=== PATIENT | female | born 1940 | race Hispanic/Latino ===

== ENCOUNTER 2024-08-17 20:11 | Observation (INO) | payer OTHER, SELFPAY ==
--- NOTE | ~2024-08-17 | CT_ITS ---
EXAMINATION: CTA brain carotid DATE: 08/17/2024 20:38 INDICATION: Right facial weakness. TECHNIQUE: Computed tomographic angiography (CTA) of the head was performed with 100 mL Omnipaque-350 intravenous contrast. CTA of the neck was performed with intravenous contrast. Automated exposure co ntrol and iterative reconstruction technique were employed. The dose-length product was 1139.69 mGy-c m. Maximum intensity projection and volume rendered 3D-reconstructions were created by the [employer] st on a separate workstation. COMPARISON: Head CT 08/17/2024 FINDINGS: HEAD CTA: There is an old infarct involving the right basal ganglia and right internal capsule. There are scattered areas of low attenuation in the cerebral white matter, which is within normal limits f or the patient's age. There is no intracranial hemorrhage, acute infarction, or abnormal intracranial mass lesion. There is ex vacuo dilatation of right lateral ventricle. There is mucosal thickening in the paranasal sinuses. The orbits are normal. The mastoid air cells are normal. Right vertebral vitor ry is dominant. There is total occlusion of distal left vertebral artery. There is no significant cali nosis of basilar artery or the posterior communicating arteries. There is no significant stenosis of the intracranial internal carotid arteries or anterior or middle cerebral arteries. Anterior communic ating artery is normal. Posterior communicating arteries are not identified. There is no aneurysm. NECK CTA: The lungs demonstrate peripheral septal thickening, consistent with mild pulmonary edema an d/or chronic interstitial lung disease. Cardiomegaly is noted. No pericardial effusion. There are cor onary artery calcifications. The central pulmonary arteries are enlarged, consistent with pulmonary arterial hypertension. The ascending aorta measuring 4.4 cm. There are no pathologically enlarged lym ph nodes. There are nodules in the thyroid measuring up to 2.4 cm. There is no significant stenosis o f the cervical vertebral arteries. There is plaque in the proximal internal carotid arteries. There is 0% stenosis of the proximal right internal carotid artery relative to normal distal artery lumen d iameter (NASCET criteria). There is 0% stenosis of the proximal left internal carotid artery relative to normal distal artery lumen diameter. There is severe spondylosis at C5-C6. IMPRESSION: 1. 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 2. 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 3. 0% stenosis of the proximal internal carotid arteries relative to normal distal artery lumen diame ters (NASCET criteria). Reviewed, dictated and finalized at location A. [employer] IMPRESSION: 1. 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 2. 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 3. 0% stenosis of the proximal internal carotid arteries relative to normal dis gael artery lumen diameters (NASCET criteria).
--- NOTE | ~2024-08-17 | XR_ITS ---
XR chest 2V DATE: 08/19/2024 16:51 INDICATION: Aortic dilatation TECHNIQUE: PA and lateral views COMPARISON: None FINDINGS: Cardiomegaly. Aortic calcification and unfolding. No hilar or mediastinal enlargement is de tected. No pulmonary infiltrate or consolidation, pleural effusion or pulmonary vascular congestion or pneumo thorax. Bilateral thyroid calcifications. Diffuse osteopenia. Degenerative spurring involving particularly the lower thoracic spine. IMPRESSION: Cardiomegaly Aortic atherosclerosis No active pulmonary disease Osteopenia Degenerative spurring of the thoracic spine Bilateral thyroid calcifications Reviewed, dictated and finalized at location A. GER RETENTION
--- NOTE | ~2024-08-17 | MR_ITS ---
EXAMINATION: MR brain/brain stem wo/w con DATE: 08/18/2024 11:34 INDICATION: Right facial droop TECHNIQUE: Magnetic resonance imaging (MRI) of the brain and brainstem was performed without and with 16 mL Multihance intravenous contrast. Sequences included sagittal and axial T1-weighted SE, axial d iffusion-weighted FS SE, axial T2*-weighted GRE, axial T2-weighted FLAIR, and axial T2-weighted FSE. Postcontrast axial and coronal T1-weighted SE was obtained. Apparent diffusion coefficient (ADC) maps were created. COMPARISON: Head CT and brain and carotid CT angiogram dated 08/17/2024 FINDINGS: Again seen is a small region of subtle malacia consistent with chronic infarct involving the head of the right caudate nucleus and adjacent anterior limb of the internal capsule. There are no areas of r estricted diffusion to suggest acute infarction. No intracranial hemorrhage or abnormal intracranial mass lesion. There are scattered areas of nonspecific increased T2-weighted signal intensity in the c erebral white matter, predominantly involving the deep and periventricular white matter. There are no intraparenchymal signal abnormalities seen on the other pulse sequences. Symmetric prominence of the sulci consistent with mild age-appropriate diffuse cerebral volume loss. The ventricles are symmetri c and normal in size. There are no abnormal extra-axial fluid collections. Absent flow void in the le ft vertebral artery consistent with total occlusion as demonstrate on the earlier brain and carotid C T angiogram. Flow voids are seen in the remaining central cerebral arteries on the T2-weighted sequen xochitl consistent with their expected patency. There are no abnormally enhancing brain lesions. Enhancin g mucosal thickening throughout the paranasal sinuses with nonenhancing mucus filling the left maxill maged and partially filling the right maxillary sinuses. Visualized orbits and soft tissues are unremar kable. IMPRESSION: 1. 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 No acute intracranial process. 2. Age-related changes in the brain with mild diffuse volume loss and age-appropriate mild scattered white matter T2 hyperintensity consistent with chronic small vessel ischemic disease. 3. 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 Reviewed, dictated and finalized at location A. RVISOR HOME ENERGY CONSULTANT IMPRESSION: 1. 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 No acute intracranial process. 2. Age-related changes in the brain with mild diffuse volume loss and age-appro priate mild scattered white matter T2 hyperintensity consistent with chronic sm all vessel ischemic disease. 3. 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
--- NOTE | ~2024-08-17 | MR_ITS ---
EXAMINATION: MRA brain wo con DATE: 08/18/2024 11:45 INDICATION: Stroke TECHNIQUE: Magnetic resonance angiography (MRA) of the brain was performed without intravenous contrast by the 3 D [id number] technique. COMPARISON: Brain and carotid CT angiogram dated 08/17/2024 FINDINGS: There is normal flow related signal seen within the basilar, right vertebral and bilateral internal c arotid arteries. No flow related signal in the left vertebral artery consistent with total occlusion as seen on the CT angiogram from one day prior. There is no proximal stenosis. There are no aneurysm s identified. Both A1 and P1 segments are patent. Flow in the cerebral arteries is symmetric. IMPRESSION: 1. 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 Reviewed, dictated and finalized at location A. ER AND TONER
--- NOTE | ~2024-08-17 | CT_ITS ---
EXAMINATION: CT brain wo con DATE: 08/17/2024 20:34 INDICATION: Right facial weakness. TECHNIQUE: Computed tomography (CT) of the head was performed without intravenous contrast. The mA wa s adjusted according to patient size. Iterative reconstruction technique was employed. The dose-lengt h product was 605.33 mGy-cm. COMPARISON: None FINDINGS: There is an old infarct involving the right basal ganglia and right internal capsule. There are scattered areas of low attenuation in the cerebral white matter, which is within normal limits f or the patient's age. There is no intracranial hemorrhage, acute infarction, or abnormal intracrania l mass lesion. There is ex vacuo dilatation of right lateral ventricle. The orbits are normal. The ma stoid air cells are normal. There is mucosal thickening in the paranasal sinuses. IMPRESSION: 1. 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 I called this result to Dr. Bolanos. Reviewed, dictated and finalized at location A. VALUE TESTER
--- NOTE | ~2024-08-17 | CT_ITS ---
EXAMINATION: CTA chest DATE: 08/19/2024 16:52 INDICATION: Aortic dilatation TECHNIQUE: Computed tomography (CT) of the chest was performed with 100 CC Omnipaque 350 intravenous contrast. Automated exposure control and iterative reconstruction technique were employed. Exam dose: 321.86 mGy-cm total exam DLP. COMPARISON: 08/19/2024 2 view chest FINDINGS: There is thyromegaly with bilateral thyroid cysts and prominent macrocalcifications. There is aneurysm of the ascending aorta which measures up to 4.6 cm diameter. Normal caliber of the mid aortic arch, measuring 2.7 cm diameter. Normal caliber of the descending aorta, measuring 2.6 cm diameter. No hilar or mediastinal mass lesion or lymphadenopathy. No thoracic aortic dissection. No pericardial or pleural effusion. There is interstitial soft tissue thickening in the peripheral lung lucero which may be consistent wi th usual interstitial pneumonia type pulmonary interstitial fibrosis. No pulmonary consolidation or suspicious pulmonary mass lesion is detected. Sludge and/or stones in the gallbladder lumen. The partially included adrenal glands appear unremarkable. Small sliding hiatal hernia. Diffuse idiopathic skeletal hyperostosis of the lower thoracic spine. No suspicious osteolytic or osteoblastic lesions. IMPRESSION: 4.6 cm diameter ascending aortic aneurysm Thyromegaly with bilateral macrocalcifications, cysts Peripheral interstitial thickening of the lungs which might be consistent with usual interstitial pne umonia type pulmonary interstitial fibrosis Sludge and/or stones in the gallbladder lumen Small sliding hiatal hernia Diffuse idiopathic skeletal hyperostosis of the lower thoracic spine Reviewed, dictated and finalized at Location A. Reviewed, dictated and finalized at location A. TRIC REPAIR SUPERVISOR IMPRESSION: 4.6 cm diameter ascending aortic aneurysm Thyromegaly with bilateral macrocalcifications, cysts Peripheral interstitial thickening of the lungs which might be consistent with usual interstitial pneumonia type pulmonary interstitial fibrosis Sludge and/or stones in the gallbladder lumen Small sliding hiatal hernia Diffuse idiopathic skeletal hyperostosis of the lower thoracic spine
--- NOTE | ~2024-08-17 | US_ITS ---
EXAMINATION: US venous doppler [facility] DATE: 08/17/2024 22:09 INDICATION: Deep vein thrombosis. TECHNIQUE: Grayscale ultrasound images without and with compression and Doppler ultrasound images of the bilateral lower extremity veins were obtained. COMPARISON: None. FINDINGS: The visualized portions of right common femoral vein, profunda (deep) femoral vein, femoral vein, pop liteal vein, peroneal veins, posterior tibial veins, and greater saphenous vein outflow are patent. The visualized portions of left common femoral vein, profunda femoral vein, femoral vein, popliteal v ein, peroneal veins, posterior tibial veins, and greater saphenous vein outflow are patent. IMPRESSION: 1. No deep venous thrombosis. Reviewed, dictated and finalized at location A. T MANAGER
--- NOTE | ~2024-08-17 | MR_ITS ---
EXAMINATION: MRA neck wo/w con DATE: 08/18/2024 12:43 INDICATION: Stroke TECHNIQUE: Magnetic resonance angiography (MRA) of the neck was performed without intravenous contras t. Sequences included axial 2D-time of flight T1-weighted FSPGR and coronal T1-weighted FSPGR without and with 20 mL Multihance intravenous contrast. COMPARISON: None. FINDINGS: 4.7 cm diameter fusiform ascending thoracic aortic aneurysm. The right vertebral artery is dominant w ith diminutive left vertebral artery, the distal intracranial portion of which appears to occlude. Th ere is 0% stenosis of the right carotid bulb relative to normal distal artery lumen diameter (NASCET criteria). There is 0% stenosis of the left carotid bulb relative to normal distal artery lumen diam eter. Multinodular goiter. IMPRESSION: 1. 0% stenosis of the right carotid bulb relative to normal distal artery lumen diameter (NASCET crit eria). 2. 0% stenosis of the left carotid bulb relative to normal distal artery lumen diameter. 3. Right vertebral artery is dominant with diminutive left vertebral artery the distal intracranial p ortion of which occludes. 4. Fusiform ascending thoracic aortic aneurysm measuring up to 4.7 cm in maximal diameter. 5. Multinodular goiter. Reviewed, dictated and finalized at location A. ESTING CONTRACTOR IMPRESSION: 1. 0% stenosis of the right carotid bulb relative to normal distal artery lumen diameter (NASCET criteria). 2. 0% stenosis of the left carotid bulb relative to normal distal artery lumen diameter. 3. Right vertebral artery is dominant with diminutive left vertebral artery the distal intracranial portion of which occludes. 4. Fusiform ascending thoracic aortic aneurysm measuring up to 4.7 cm in arinana l diameter. 5. Multinodular goiter.
--- NOTE | 2024-08-17 20:26 | PC.NURSE ---
Pt's stated complaint reflects a L sided facial droop, but is actually a R sided droop.
[2024-08-17 20:30] LABS: Estimated Glomerular Filt Rate 60
[2024-08-17 20:32] LABS: Basophils Absolute Auto 0.1 K/mm3 (0.0-0.1); Basophils Percent Auto 0.5 % (0.2-1.2); Eosinophils Absolute Auto 0.4 K/mm3 (0-0.3); Eosinophils Percent Auto 3.7 % (0-4.4); Hemoglobin 15.2 g/dL (12.0-15.0); Immature Granulocyte Absolute 0.05 K/mm3 (0.00-0.031); Immature Granulocyte Percent A 0.5 % (0-0.5); Lymphocytes Absolute Auto 2.31 K/mm3 (0.9-3.2); Lymphocytes Percent Auto 23.4 % (18.3-44.2); Mean Corpuscular HGB Conc 33.8 g/dl (32-36); Mean Corpuscular Hemoglobin 30.1 pg (26-34); Mean Corpuscular Volume 89.1 fl (80-100); Mean Platelet Volume 9.5 fl (7.4-10.4); Monocytes Absolute Auto 0.6 K/mm3 (0.1-0.6); Monocytes Percent Auto 6.5 % (2.6-8.5); Neutrophils Absolute Auto 6.5 K/mm3 (1.3-6.7); Neutrophils Percent Auto 65.4 % (45.5-73.1); Platelet Count Result 257 k/mm3 (150-375); Red Blood Count 5.05 M/mm3 (4.2-5.4); Red Cell Distribution Width 11.9 % (11.5-14.5); White Blood Count 9.9 K/mm3 (4.5-10.0)
[2024-08-17 20:41] LABS: Alanine Aminotransferase 40 U/L (6-35); Albumin Level 4.3 g/dL (3.5-5.1); Alkaline Phosphatase 124 U/L (38-126); Anion Gap 5 mmol/L (4-12); Aspartate Amino Transferase 31 U/L (14-36); Bilirubin,Total 0.6 mg/dL (0.2-1.3); Blood Urea Nitrogen 28 mg/dL (7-17); Carbon Dioxide 28 mmol/L (22-30); Chloride 99 mmol/L (98-107); Estimated Glomerular Filt Rate > 60; Glucose 296 mg/dL (65-110); INR 0.9; Potassium 4.8 mmol/L (3.4-5.0); Sodium 132 mmol/L (137-145)
[2024-08-17 20:43] VITALS: PULSE 103
[2024-08-17 20:44] VITALS: BP 165/80; PULSE 107; RESP 15; O2SAT 98
[2024-08-17 20:52] LABS: Glucose Point of Care 292 mg/dl (65-105)
[2024-08-17 20:57] VITALS: BP 157/84; PULSE 93; RESP 18; TEMP 36.8; O2SAT 98
--- NOTE | 2024-08-17 20:57 | ED.NEUROSD ---
HPI - Neuro Symptoms/Deficit General Chief Complaint: Suspected CVA <Perez Bolanos MD - Last Filed: 08/18/24 13:03> Stated Complaint: L facial droop, HTN, high blood sugar <Perez Bolanos MD - Last Filed: 08/18/24 13:03> Time Seen by Provider: 08/17/24 20:20 <Perez Bolanos MD - Last Filed: 08/18/24 13:03> History of Present Illness HPI Narrative: 84-year-old female presents to the emergency department for evaluation for right-sided facial droop that started approximately a 6:00 a.m. this evening. Patient has no prior known history of CVA. Patient does have prior history of DVTs when she was in [place]. Today while the patient was eating they noticed that she had some right-sided facial droop. Patient had no loss consciousness, no numbness or weakness in the arms or legs. Family denies any speech changes. <Perez Bolanos MD - Last Filed: 08/18/24 13:03> Related Data Home Medications: Home Medications ?Medication ?Instructions ?Recorded ?Confirmed ?Last Taken ?Type amlodipine 10 mg tablet 10 mg PO DAILY 08/18/24 08/18/24 08/17/24 History atorvastatin 40 mg tablet 40 mg PO HS 08/18/24 08/18/24 08/17/24 History cholecalciferol (vitamin D3) 1,250 1,250 mcg PO WEEKLY 08/18/24 08/18/24 08/17/24 History mcg (50,000 unit) capsule insulin glargine 100 unit/mL (3 20 unit subcut DAILY 08/18/24 08/18/24 08/17/24 History mL) subcutaneous pen (Lantus Solostar U-100 Insulin) losartan 100 1 tablet PO DAILY 08/18/24 08/18/24 08/17/24 History mg-hydrochlorothiazide 12.5 mg tablet multivitamin with folic acid 400 1 tablet PO DAILY 08/18/24 08/18/24 08/17/24 History mcg tablet (Tab-A-Rhona) pantoprazole 40 mg tablet,delayed 40 mg PO DAILY 08/18/24 08/18/24 08/17/24 History release <Perez Bolanos MD - Last Filed: 08/18/24 13:03> Allergies/Adverse Reactions: Allergies Allergy/AdvReac Type Severity Reaction Status Date / Time Penicillins Allergy Severe Anaphylaxis Verified 08/18/24 00:47 <Perez Bolanos MD - Last Filed: 08/18/24 13:03> Review of Systems Review of Systems: All systems reviewed & are unremarkable except as noted in HPI and below <Perez Bolanos MD - Last Filed: 08/18/24 13:03> [facility] Past Medical History Medical History: Medical History (Updated 08/18/24 @ 11:48 by Jasmin Saucedo APRN) History of hyperlipidemia History of hypertension History of diabetes mellitus <Perez Bolanos MD - Last Filed: 08/18/24 13:03> Social History Social History: Social History (Updated 08/17/24 @ 22:36 by Marcia Burrows PA-C) Smoking status: Never smoker Alcohol intake: never Substance use: never Do You Feel Safe in your Home?: Yes Lack of Transportation: No Lack of Food: Never True Current Housing: I Have Housing Concerned About Future Housing: No Difficulty Paying Gas/Electric Bills: No Difficulty Paying for Meds: No Currently Unemployed: No Education: Never Attended/Kindergarten Only Difficulty w/ Childcare or Family Care: No Spiritual care concerns: No <Perez Bolanos MD - Last Filed: 08/18/24 13:03> Exam Narrative: APPEARANCE: Well appearing, no pain, no distress, well-nourished. HEAD: normocephalic, atraumatic. EYES: Chronic changes to left eye NOSE: Normal no drainage EARS:TMS clear with good light reflex. THROAT: Pharynx clear, no exudate. NECK: Supple. No adenopathy, no masses. RESPIRATORY: Airway patent, respirations nonlabored. Clear to auscultation bilaterally, no rales, rhonchi, wheezing. CARDIOVASCULAR: Regular rate and rhythm without murmurs rubs or gallops. ABDOMINAL: Soft, nontender, nondistended, normal bowel sounds MUSCULOSKELETAL: Moves all extremities. Strength/ROM intact, No edema, No calf tenderness. NEURO: Right-sided facial droop when smiling SKIN: Warm, dry. Normal Color <Perez Bolanos MD - Last Filed: 08/18/24 13:03> Course Course Emergency Course: patient and family updated on workup <Marcia Burrows PA-C - Last Filed: 08/17/24 22:38> Consultations Consultation #1: Spoke with hospitalist about patient and workup who accepts admission <Marcia Burrows PA-C - Last Filed: 08/17/24 22:38> Date: 08/17/24 <Marcia Burrows PA-C - Last Filed: 08/17/24 22:38> Vital Signs Vital signs: Vital Signs Pulse Rate 103 H 08/17/24 20:43 Temperature 97.3 F L 08/18/24 12:00 Pulse Rate 93 08/18/24 12:00 Respiratory Rate 16 08/18/24 12:00 Blood Pressure 142/73 H 08/18/24 12:00 Pulse Oximetry 99 08/18/24 12:00 Oxygen Delivery Room Air 08/18/24 06:44 <Perez Bolanos MD - Last Filed: 08/18/24 13:03> Vital Signs Pulse Rate 103 H 08/17/24 20:43 Temperature 97.3 F L 08/18/24 12:00 Pulse Rate 93 08/18/24 12:00 Respiratory Rate 16 08/18/24 12:00 Blood Pressure 142/73 H 08/18/24 12:00 Pulse Oximetry 99 08/18/24 12:00 Oxygen Delivery Room Air 08/18/24 06:44 <Marcia Burrows PA-C - Last Filed: 08/17/24 22:38> MDM - Neuro Symptoms/Deficit MDM Narrative Medical decision making narrative: 84-year-old female present to the emergency department for evaluation for right-sided facial droop. CTA and CT were negative for acute intracranial abnormality. Patient's only neuro deficit is right-sided facial droop. Patient has no numbness or drift and any other limbs. Patient was able to ambulate at her baseline. CT does show previous infarction. I discussed the case with Neurology for and Dr Lewis did recommend ordering MRI he states he will be able to see the patient on Wednesday. Spoke with hospitalist about patient and workup who accepts admission <Perez Bolanos MD - Last Filed: 08/18/24 13:03> 84-year-old female present to the emergency department for evaluation for right-sided facial droop. CTA and CT were negative for acute intracranial abnormality. Patient's only neuro deficit is right-sided facial droop. Patient has no numbness or drift and any other limbs. Patient was able to ambulate at her baseline. CT does show previous infarction. I discussed the case with Neurology for and pneumonia did recommend ordering MRI he states he will be able to see the patient on Wednesday. Spoke with hospitalist about patient and workup who accepts admission <Marcia Burrows PA-C - Last Filed: 08/17/24 22:38> Differential Diagnosis Differential diagnosis: Likely other (TIA, CVA, Cardoza's palsy, facial droop, dental infection) <Perez Bolanos MD - Last Filed: 08/18/24 13:03> Lab Data Attestation: I reviewed the patient's lab results. <Marcia Burrows PA-C - Last Filed: 08/17/24 22:38> Result diagrams: 08/17/24 20:25 08/17/24 20:28 <Perez Bolanos MD - Last Filed: 08/18/24 13:03> Labs: Lab Results 08/17/24 08/17/24 08/17/24 Range/Units 20:25 20:28 20:47 WBC 9.9 (4.5-10.0) K/mm3 RBC 5.05 (4.2-5.4) M/mm3 Hgb 15.2 H (12.0-15.0) g/dL Hct 45.0 (37.0-47.0) % MCV 89.1 (80-100) fl MCH 30.1 (26-34) pg MCHC 33.8 (32-36) g/dl RDW 11.9 (11.5-14.5) % Plt Count 257 (150-375) k/mm3 MPV 9.5 (7.4-10.4) fl Immature Gran % (Auto) 0.5 (0-0.5) % Neut % (Auto) 65.4 (45.5-73.1) % Lymph % (Auto) 23.4 (18.3-44.2) % [place] % (Auto) 6.5 (2.6-8.5) % Eos % (Auto) 3.7 (0-4.4) % Baso % (Auto) 0.5 (0.2-1.2) % Lymph # (Auto) 2.31 (0.9-3.2) K/mm3 [place] # (Auto) 0.6 (0.1-0.6) K/mm3 Eos # (Auto) 0.4 H (0-0.3) K/mm3 Baso # (Auto) 0.1 (0.0-0.1) K/mm3 Abs Immat Gran (auto) 0.05 H (0.00-0.031) K/mm3 Absolute Neuts (auto) 6.5 (1.3-6.7) K/mm3 Absolute Nucleated RBC 0.000 (0.0-0.012) K/mm3 Nucleated RBC % 0.0 (0.0-0.2) % PT 13.0 (11.1-14.7) Seconds INR 0.9 APTT 26.0 (22.3-36.8) Seconds Sodium 132 L (137-145) mmol/L Potassium 4.8 (3.4-5.0) mmol/L Chloride 99 (98-107) mmol/L Carbon Dioxide 28 (22-30) mmol/L Anion Gap 5 (4-12) mmol/L BUN 28 H (7-17) mg/dL Creatinine 0.80 0.90 (0.7-1.0) mg/dL Estim Creat Clear Calc Not Reportable Not Reportable Estimated GFR > 60 60 (59 - ) Glucose 296 H (65-110) mg/dL POC Capillary Glucose 292 H (65-105) mg/dl Hemoglobin A1c 11.2 H (<5.7) % Calcium 10.0 (8.4-10.2) mg/dL Total Bilirubin 0.6 (0.2-1.3) mg/dL AST 31 (14-36) U/L ALT 40 H (6-35) U/L Alkaline Phosphatase 124 (38-126) U/L Total Protein 8.0 (6.3-8.2) g/dL Albumin 4.3 (3.5-5.1) g/dL Urine Color (Yellow) Urine Appearance (Clear) Urine pH (5.0-9.0) Ur Specific [place] (1.001-1.035) Urine Protein (Negative) mg/dL Urine Glucose (UA) (Negative) mg/dL Urine Ketones (Negative) mg/dL Ur Blood (Man) (Negative) Urine Nitrate (Negative) Urine Bilirubin (Negative) Urine Urobilinogen (<2.0) mg/dL Leukocyte Esterase Rfl (Negative) RINA/UL Urine RBC (0-2) /hpf Urine WBC (0-3) /hpf Ur Squamous Epith Cells (Few) /hpf Urine Bacteria /hpf Urine Casts 08/17/24 Range/Units 21:20 WBC (4.5-10.0) K/mm3 RBC (4.2-5.4) M/mm3 Hgb (12.0-15.0) g/dL Hct (37.0-47.0) % MCV (80-100) fl MCH (26-34) pg MCHC (32-36) g/dl RDW (11.5-14.5) % Plt Count (150-375) k/mm3 MPV (7.4-10.4) fl Immature Gran % (Auto) (0-0.5) % Neut % (Auto) (45.5-73.1) % Lymph % (Auto) (18.3-44.2) % [place] % (Auto) (2.6-8.5) % Eos % (Auto) (0-4.4) % Baso % (Auto) (0.2-1.2) % Lymph # (Auto) (0.9-3.2) K/mm3 [place] # (Auto) (0.1-0.6) K/mm3 Eos # (Auto) (0-0.3) K/mm3 Baso # (Auto) (0.0-0.1) K/mm3 Abs Immat Gran (auto) (0.00-0.031) K/mm3 Absolute Neuts (auto) (1.3-6.7) K/mm3 Absolute Nucleated RBC (0.0-0.012) K/mm3 Nucleated RBC % (0.0-0.2) % PT (11.1-14.7) Seconds INR APTT (22.3-36.8) Seconds Sodium (137-145) mmol/L Potassium (3.4-5.0) mmol/L Chloride (98-107) mmol/L Carbon Dioxide (22-30) mmol/L Anion Gap (4-12) mmol/L BUN (7-17) mg/dL Creatinine (0.7-1.0) mg/dL Estim Creat Clear Calc Estimated GFR (59 - ) Glucose (65-110) mg/dL POC Capillary Glucose (65-105) mg/dl Hemoglobin A1c (<5.7) % Calcium (8.4-10.2) mg/dL Total Bilirubin (0.2-1.3) mg/dL AST (14-36) U/L ALT (6-35) U/L Alkaline Phosphatase (38-126) U/L Total Protein (6.3-8.2) g/dL Albumin (3.5-5.1) g/dL Urine Color Yellow (Yellow) Urine Appearance Clear (Clear) Urine pH 6.5 (5.0-9.0) Ur Specific [place] 1.032 (1.001-1.035) Urine Protein Negative (Negative) mg/dL Urine Glucose (UA) 3+ H (Negative) mg/dL Urine Ketones Negative (Negative) mg/dL Ur Blood (Man) Negative (Negative) Urine Nitrate Negative (Negative) Urine Bilirubin Negative (Negative) Urine Urobilinogen 0.2 (<2.0) mg/dL Leukocyte Esterase Rfl Trace H (Negative) RINA/UL Urine RBC 0-2 (0-2) /hpf Urine WBC 11-20 H (0-3) /hpf Ur Squamous Epith Cells None seen (Few) /hpf Urine Bacteria 1+ H /hpf Urine Casts 0-2 <Perez Bolanos MD - Last Filed: 08/18/24 13:03> Lab Results 08/17/24 08/17/24 08/17/24 Range/Units 20:25 20:28 20:47 WBC 9.9 (4.5-10.0) K/mm3 RBC 5.05 (4.2-5.4) M/mm3 Hgb 15.2 H (12.0-15.0) g/dL Hct 45.0 (37.0-47.0) % MCV 89.1 (80-100) fl MCH 30.1 (26-34) pg MCHC 33.8 (32-36) g/dl RDW 11.9 (11.5-14.5) % Plt Count 257 (150-375) k/mm3 MPV 9.5 (7.4-10.4) fl Immature Gran % (Auto) 0.5 (0-0.5) % Neut % (Auto) 65.4 (45.5-73.1) % Lymph % (Auto) 23.4 (18.3-44.2) % [place] % (Auto) 6.5 (2.6-8.5) % Eos % (Auto) 3.7 (0-4.4) % Baso % (Auto) 0.5 (0.2-1.2) % Lymph # (Auto) 2.31 (0.9-3.2) K/mm3 [place] # (Auto) 0.6 (0.1-0.6) K/mm3 Eos # (Auto) 0.4 H (0-0.3) K/mm3 Baso # (Auto) 0.1 (0.0-0.1) K/mm3 Abs Immat Gran (auto) 0.05 H (0.00-0.031) K/mm3 Absolute Neuts (auto) 6.5 (1.3-6.7) K/mm3 Absolute Nucleated RBC 0.000 (0.0-0.012) K/mm3 Nucleated RBC % 0.0 (0.0-0.2) % PT 13.0 (11.1-14.7) Seconds INR 0.9 APTT 26.0 (22.3-36.8) Seconds Sodium 132 L (137-145) mmol/L Potassium 4.8 (3.4-5.0) mmol/L Chloride 99 (98-107) mmol/L Carbon Dioxide 28 (22-30) mmol/L Anion Gap 5 (4-12) mmol/L BUN 28 H (7-17) mg/dL Creatinine 0.80 0.90 (0.7-1.0) mg/dL Estim Creat Clear Calc Not Reportable Not Reportable Estimated GFR > 60 60 (59 - ) Glucose 296 H (65-110) mg/dL POC Capillary Glucose 292 H (65-105) mg/dl Hemoglobin A1c 11.2 H (<5.7) % Calcium 10.0 (8.4-10.2) mg/dL Total Bilirubin 0.6 (0.2-1.3) mg/dL AST 31 (14-36) U/L ALT 40 H (6-35) U/L Alkaline Phosphatase 124 (38-126) U/L Total Protein 8.0 (6.3-8.2) g/dL Albumin 4.3 (3.5-5.1) g/dL Urine Color (Yellow) Urine Appearance (Clear) Urine pH (5.0-9.0) Ur Specific [place] (1.001-1.035) Urine Protein (Negative) mg/dL Urine Glucose (UA) (Negative) mg/dL Urine Ketones (Negative) mg/dL Ur Blood (Man) (Negative) Urine Nitrate (Negative) Urine Bilirubin (Negative) Urine Urobilinogen (<2.0) mg/dL Leukocyte Esterase Rfl (Negative) RINA/UL Urine RBC (0-2) /hpf Urine WBC (0-3) /hpf Ur Squamous Epith Cells (Few) /hpf Urine Bacteria /hpf Urine Casts 08/17/24 Range/Units 21:20 WBC (4.5-10.0) K/mm3 RBC (4.2-5.4) M/mm3 Hgb (12.0-15.0) g/dL Hct (37.0-47.0) % MCV (80-100) fl MCH (26-34) pg MCHC (32-36) g/dl RDW (11.5-14.5) % Plt Count (150-375) k/mm3 MPV (7.4-10.4) fl Immature Gran % (Auto) (0-0.5) % Neut % (Auto) (45.5-73.1) % Lymph % (Auto) (18.3-44.2) % [place] % (Auto) (2.6-8.5) % Eos % (Auto) (0-4.4) % Baso % (Auto) (0.2-1.2) % Lymph # (Auto) (0.9-3.2) K/mm3 [place] # (Auto) (0.1-0.6) K/mm3 Eos # (Auto) (0-0.3) K/mm3 Baso # (Auto) (0.0-0.1) K/mm3 Abs Immat Gran (auto) (0.00-0.031) K/mm3 Absolute Neuts (auto) (1.3-6.7) K/mm3 Absolute Nucleated RBC (0.0-0.012) K/mm3 Nucleated RBC % (0.0-0.2) % PT (11.1-14.7) Seconds INR APTT (22.3-36.8) Seconds Sodium (137-145) mmol/L Potassium (3.4-5.0) mmol/L Chloride (98-107) mmol/L Carbon Dioxide (22-30) mmol/L Anion Gap (4-12) mmol/L BUN (7-17) mg/dL Creatinine (0.7-1.0) mg/dL Estim Creat Clear Calc Estimated GFR (59 - ) Glucose (65-110) mg/dL POC Capillary Glucose (65-105) mg/dl Hemoglobin A1c (<5.7) % Calcium (8.4-10.2) mg/dL Total Bilirubin (0.2-1.3) mg/dL AST (14-36) U/L ALT (6-35) U/L Alkaline Phosphatase (38-126) U/L Total Protein (6.3-8.2) g/dL Albumin (3.5-5.1) g/dL Urine Color Yellow (Yellow) Urine Appearance Clear (Clear) Urine pH 6.5 (5.0-9.0) Ur Specific [place] 1.032 (1.001-1.035) Urine Protein Negative (Negative) mg/dL Urine Glucose (UA) 3+ H (Negative) mg/dL Urine Ketones Negative (Negative) mg/dL Ur Blood (Man) Negative (Negative) Urine Nitrate Negative (Negative) Urine Bilirubin Negative (Negative) Urine Urobilinogen 0.2 (<2.0) mg/dL Leukocyte Esterase Rfl Trace H (Negative) RINA/UL Urine RBC 0-2 (0-2) /hpf Urine WBC 11-20 H (0-3) /hpf Ur Squamous Epith Cells None seen (Few) /hpf Urine Bacteria 1+ H /hpf Urine Casts 0-2 <Marcia Burrows PA-C - Last Filed: 08/17/24 22:38> Imaging Data Radiologist's impression: ITS Impressions Head CT 08/17/24 20:34 IMPRESSION: 1. 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 I called this result to Dr. Bolanos. Head/Neck CTA 08/17/24 20:44 IMPRESSION: 1. 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 2. 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 3. 0% stenosis of the proximal internal carotid arteries relative to normal distal artery lumen diameters (NASCET criteria). Venous Doppler Study 08/17/24 22:11 IMPRESSION: 1. No deep venous thrombosis. <Marcia Burrows PA-C - Last Filed: 08/17/24 22:38> ECG Data EKG #1: ECG completion date: 08/17/24 <Marcia Burrows PA-C - Last Filed: 08/17/24 22:38> EKG Interpretation: normal rate, sinus rhythm, no ST changes and normal QT <Marcia Burrows PA-C - Last Filed: 08/17/24 22:38> Critical Care Time Critical Care Time Critical Care Time: No <Marcia Burrows PA-C - Last Filed: 08/17/24 22:38> Discharge Plan Discharge Clinical Impression: Facial droop <Perez Bolanos MD - Last Filed: 08/18/24 13:03> Patient Disposition: Still a Patient <Perez Bolanos MD - Last Filed: 08/18/24 13:03> Condition: Serious <Perez Bolanos MD - Last Filed: 08/18/24 13:03> Quality Stroke Scale Stroke Scale 1: Stroke scale date:: 08/17/24 <Perez Bolanos MD - Last Filed: 08/18/24 13:03> Stroke scale time:: 20:57 <Perez Bolanos MD - Last Filed: 08/18/24 13:03> 1a Level of consciousness: alert-0 <Perez Bolanos MD - Last Filed: 08/18/24 13:03> 1b Level of consciousness questions: answers both correctly-0 <Perez Bolanos MD - Last Filed: 08/18/24 13:03> 1c Level of consciousness commands: obeys both correctly-0 <Perez Bolanos MD - Last Filed: 08/18/24 13:03> 2 Best gaze: normal-0 <Perez Bolanos MD - Last Filed: 08/18/24 13:03> 3 Visual: no visual loss-0 <Perez Bolanos MD - Last Filed: 08/18/24 13:03> 4 Facial palsy: minor paralysis-1 <Perez Bolanos MD - Last Filed: 08/18/24 13:03> 5a Motor: left arm: no drift-0 <Perez Bolanos MD - Last Filed: 08/18/24 13:03> 5b Motor: right arm: no drift-0 <Perez Bolanos MD - Last Filed: 08/18/24 13:03> 6a Motor: left leg: no drift-0 <Perez Bolanos MD - Last Filed: 08/18/24 13:03> 6b Motor: right leg: no drift-0 <Perez Bolanos MD - Last Filed: 08/18/24 13:03> 7 Limb ataxia: absent-0 <Perez Bolanos MD - Last Filed: 08/18/24 13:03> 8 Sensory: normal-0 <Perez Bolanos MD - Last Filed: 08/18/24 13:03> 9 Best language: no aphasia-0 <Perez Bolanos MD - Last Filed: 08/18/24 13:03> 10 Dysarthria: normal-0 <Perez Bolanos MD - Last Filed: 08/18/24 13:03> 11 Extinction and inattention: no abnormality-0 <Perez Bolanos MD - Last Filed: 08/18/24 13:03> Level:: 1 <Perez Bolanos MD - Last Filed: 08/18/24 13:03> 1 <Marcia Burrows PA-C - Last Filed: 08/17/24 22:38>
[2024-08-17 21:31] LABS: Add Urine Microscopic? YES; Appearance Urine Clear (Clear); Bacteria Urine 1+ /hpf; Bilirubin Urine Negative (Negative); Blood Urine Negative (Negative); Color Urine Yellow (Yellow); Glucose Urine UA 3+ mg/dL (Negative); Ketones Urine Negative (Negative); Leukocyte Esterase Ur Trace LEU/UL (Negative); Nitrate Urine Negative (Negative); Non Pathogenic Casts 0-2; Protein Urine Negative (Negative); RBC Urine 0-2 /hpf (0-2); Specific Grav Ur 1.032 (1.001-1.035); Squamous Epithelial Cell Urine None Seen /hpf (Few); Urobilinogen Urine 0.2 mg/dL (<2.0); pH Urine 6.5 (5.0-9.0)
--- NOTE | 2024-08-17 22:24 | ECG_ITS ---
Test Date: 2024-08-17 22:35:16 Measurements Intervals [place] Rate: 92 P: 52 ID: [id number] QRS: -27 QRSD: 89 T: 64 QT: 347 QTc: 431 Interpretive Statements SINUS RHYTHM WITH FIRST DEGREE AV BLOCK BORDERLINE LEFT AXIS DEVIATION [QRS AXIS < -20] VOLTAGE CRITERIA FOR LVH [MEETS CRITERIA IN ONE OF: R(aVL), S(V1), R(V5), R(V5/V6)+S(V1)] NONSPECIFIC ST AND T-WAVE ABNORMALITY No previous ECG available for comparison Electronically Signed On 08-18-2024 12:11:48 [employer] by Bandar Johnson M.D.
[2024-08-17] MEDS: ASPIRIN 81 MG CHEWABLE TABLET 324 MG PO (22:32)
[2024-08-17] MEDS: CLINDAMYCIN 600 MG/D5W 50 ML 600 MG/50 ML PIGGYBACK 100 MG IVPB (22:34)
--- NOTE | 2024-08-17 22:43 | PC.NURSE ---
This RN asked EDP if blood cultures is needed. EDP stated we do not need cultures.
[2024-08-17 23:00] LABS: Hemoglobin A1C 11.2 % (<5.7)
[2024-08-17 23:06] LABS: Glucose Point of Care 252 mg/dl (65-105)
[2024-08-17 23:11] VITALS: BP 161/87; PULSE 86; RESP 16; O2SAT 100
[2024-08-17 23:16] VITALS: BP 161/87; PULSE 86; RESP 16; O2SAT 100
[2024-08-18] VITALS (8 sets, daily range): BP systolic 137–191; BP diastolic 73–78; PULSE 71–95; RESP 16–18; TEMP 36.2–36.9; O2SAT 96–100; BMI 36.5; BMI 33.1
--- NOTE | 2024-08-18 00:27 | ADMGEN ---
This patient, Roseann Tracey, was admitted to 2 Medical Room 258-01. Patient/family oriented to hospital policies and general routines including ID bracelet, bed and alarms, visiting hours, pain management, procedures, bathroom and other care routines, personal items, smoking policy, room service/diet, and visiting hours. Information on how to activate the Rapid Response Team has been discussed. Patient/Family are encouraged to report perceived risks to care and to ask questions if they do not understand what they are told or what they should do.
[2024-08-18 08:45] LABS: Glucose Point of Care 181 mg/dl (65-105)
[2024-08-18] MEDS: ATORVASTATIN 40 MG TABLET 80 MG PO (09:36)
[2024-08-18] MEDS: INSULIN GLARGINE (*BKC) 100 UNITS/ML 10 UNITS SUB-Q (09:37)
[2024-08-18] MEDS: INSULIN ASPART (*BKC) 100 UNITS/ML SUB-Q ×3 (09:37→17:15)
--- NOTE | 2024-08-18 11:31 | PM.IMHP ---
H&P: HPI History of Present Illness Date/Time: 08/18/24 11:31 Chief Complaint: Facial weakness Narrative: The patient is an 84-year-old Upper Sorbian speaking female hx CVA 1 year prior, HTN, DVT's, [place] who presented to the emergency department for evaluation for a new facial droop that started approximately a 6:30 yesterday evening. She had an injury to her left eye 30 years ago and is unable to open her left eye fully. Speech is thick/slurred. She has been able to eat meals without coughing. Patient had no loss consciousness, no numbness or weakness in the arms or legs, uses a walker at baseline. She reports blood sugars have been more elevated lately. Blood pressures also in the 190's frequently. Reports a headache, also dental pain recently. In the ER, HgbA1c 11.2. Sodium 132. WBC 9.9. UA 1+ bacteria, 11-20 WBC's, no dysuria. Head CT 08/17/24 20:34 IMPRESSION: 1. 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 Head/Neck CTA 08/17/24 20:44 IMPRESSION: 1. 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 2. 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 3. 0% stenosis of the proximal internal carotid arteries relative to normal distal artery lumen diameters (NASCET criteria). MRI/MRA Head/Neck 08/18/2024 1. 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 No acute intracranial process. 2. Age-related changes in the brain with mild diffuse volume loss and age-appropriate mild scattered white matter T2 hyperintensity consistent with chronic small vessel ischemic disease. 3. 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 Venous Doppler Study 08/17/24 22:11 IMPRESSION: 1. No deep venous thrombosis. [facility] Past Medical History Medical History (Updated 08/18/24 @ 11:48 by Jasmin Saucedo APRN) History of hyperlipidemia History of hypertension History of diabetes mellitus Social History Social History (Updated 08/17/24 @ 22:36 by Marcia Burrows PA-C) Smoking status: Never smoker Alcohol intake: never Substance use: never Do You Feel Safe in your Home?: Yes Lack of Transportation: No Lack of Food: Never True Current Housing: I Have Housing Concerned About Future Housing: No Difficulty Paying Gas/Electric Bills: No Difficulty Paying for Meds: No Currently Unemployed: No Education: Never Attended/Kindergarten Only Difficulty w/ Childcare or Family Care: No Spiritual care concerns: No Meds Home Medications and Allergies Home Medications ?Medication ?Instructions ?Recorded ?Confirmed ?Type amlodipine 10 mg tablet 10 mg PO DAILY 08/18/24 08/18/24 History atorvastatin 40 mg tablet 40 mg PO HS 08/18/24 08/18/24 History cholecalciferol (vitamin D3) 1,250 1,250 mcg PO WEEKLY 08/18/24 08/18/24 History mcg (50,000 unit) capsule insulin glargine 100 unit/mL (3 20 unit subcut DAILY 08/18/24 08/18/24 History mL) subcutaneous pen (Lantus Solostar U-100 Insulin) losartan 100 1 tablet PO DAILY 08/18/24 08/18/24 History mg-hydrochlorothiazide 12.5 mg tablet multivitamin with folic acid 400 1 tablet PO DAILY 08/18/24 08/18/24 History mcg tablet (Tab-A-Rhona) pantoprazole 40 mg tablet,delayed 40 mg PO DAILY 08/18/24 08/18/24 History release Allergies Allergy/AdvReac Type Severity Reaction Status Date / Time Penicillins Allergy Severe Anaphylaxis Verified 08/18/24 00:47 Vital Signs Vital Signs - 24 hr 08/17/24 20:43 08/17/24 20:44 08/17/24 20:57 Temperature 98.2 F Pulse Rate 103 H 107 H 93 Respiratory Rate 15 18 Blood Pressure 165/80 H 157/84 H Pulse Oximetry 98 98 Oxygen Delivery 08/17/24 23:11 08/17/24 23:16 08/18/24 00:03 Temperature 97.6 F Pulse Rate 86 86 84 Respiratory Rate 16 16 18 Blood Pressure 161/87 H 161/87 H 166/78 H Pulse Oximetry 100 100 98 Oxygen Delivery 08/18/24 04:00 08/18/24 04:44 08/18/24 06:44 Temperature 98.4 F Pulse Rate 77 73 Respiratory Rate 18 Blood Pressure 137/77 Pulse Oximetry 97 Oxygen Delivery Room Air 08/18/24 08:00 08/18/24 08:00 Temperature 97.1 F L Pulse Rate 71 73 Respiratory Rate 16 Blood Pressure 140/77 Pulse Oximetry 97 Oxygen Delivery Exam Narrative: General - Awake and alert. No acute distress Eyes - PERRLA, EOM intact ENT - No thrush, No erythema Neck - No noticeable or palpable swelling Lymph Nodes - No lymphadenopathy Cardiovascular - RRR no m/r/g, no JVD Lungs: Clear to auscultation, No wheezing, use of accessory muscles, no crackles or wheezes. Skin - Skin warm and dry, no wounds or rashes Abdomen - Normal bowel sounds, abdomen soft and nontender Extremities - No edema, cyanosis or clubbing Musculoskeletal - 5/5 strength, normal range of motion, no swollen or erythematous joints. Neurological ? Alert and oriented x 3, Facial weakness on the right side (forehead smoother, corner of mouth drooping). Left eye s/p surgery, unable to open fully Upper and lower extremities strength equal. Shoulder shrub equal Right eye PERRLA. Strength equal bilaterally upper and lower extremities Psych: Normal mood and affect H&P: Results Labs Labs: Short CBC 08/17/24 Range/Units 20:25 WBC 9.9 (4.5-10.0) K/mm3 Hgb 15.2 H (12.0-15.0) g/dL Hct 45.0 (37.0-47.0) % Plt Count 257 (150-375) k/mm3 BMP 08/17/24 08/17/24 20:25 20:28 Sodium 132 L Potassium 4.8 Chloride 99 Carbon Dioxide 28 BUN 28 H Creatinine 0.80 0.90 Glucose 296 H Calcium 10.0 Liver Function 08/17/24 Range/Units 20:25 Total Bilirubin 0.6 (0.2-1.3) mg/dL AST 31 (14-36) U/L ALT 40 H (6-35) U/L Alkaline Phosphatase 124 (38-126) U/L Albumin 4.3 (3.5-5.1) g/dL Urine 08/17/24 Range/Units 21:20 Urine Color Yellow (Yellow) Urine Appearance Clear (Clear) Urine pH 6.5 (5.0-9.0) Ur Specific [place] 1.032 (1.001-1.035) Urine Protein Negative (Negative) mg/dL Urine Glucose (UA) 3+ H (Negative) mg/dL Assessment and Plan Assessment and plan (1) Hx of completed stroke: Code(s): Z86.73 - Personal history of transient ischemic attack (TIA), and cerebral infarction without residual deficits Status: Acute Assessment and Plan: (2) DMII (diabetes mellitus, type 2): Code(s): E11.9 - Type 2 diabetes mellitus without complications Status: Acute (3) Facial droop: Code(s): R29.810 - Facial weakness Status: Acute (4) Dental infection: Code(s): K04.7 - Periapical abscess without sinus Status: Acute (5) HTN (hypertension): Code(s): I10 - Essential (primary) hypertension Status: Acute Plan Facial droop Hx stroke Prior stroke inolving the right basal ganglia and right internal capsule, and occlusion of distal left vertebral artery noted on CTA. Likely new CVA but no weakness to extremities speech consult Strength grossly normal bilaterally upper and lower extremities TTE pending Neurology consulted PT/OT Plavix 300, then 75mg daily Daily ASA 81mg HTN Reports frequently elevated blood pressures at home. Also has a headache --Take amlodipine 10mg daily, losartan 100/hctz 12.5mg daily --Continue home meds --Toradol 15 x1 Uncontrolled Diabetes, hyperglycemia HgbA1c 11 Blood sugars elevated Lantus 10, Lispro 4 TID, increase as able. Dental pain Right facial/dental pain. s/p IV clinda, continue PO Follow up with dentist Quality VTE Prophylaxis VTE prophylaxis: pharmacologic ordered Hospitalist MIPS Advance Care Plan I have confirmed that the patient's Advanced Care Plan is present, code status is documented, or surrogate decision maker is listed in patient medical record.: Yes Medication Reconciliation I have utilized all available resources to obtain, update and review the patients current medications (includes all prescriptions, OTC, herbals, cannabis, and nutritional supplements).: Yes
[2024-08-18] MEDS: CLINDAMYCIN HCL 150 MG CAP 300 MG PO ×3 (12:22→23:35)
[2024-08-18] MEDS: KETOROLAC 15 MG/ML VIAL (*BKC) IV PUSH (12:23)
--- NOTE | 2024-08-18 14:00 | ECHO_ITS ---
Patient Info Name: Roseann Tracey Age: 84 years : 1940 Gender: Female Ht: 61 in Wt: 175 lbs BSA: 1.88 m2 HR: 72 bpm BP: 142 / 73 mmHg Heart Rhythm: Sinus Rhythm Technical Quality: Fair Exam Date: 08/18/2024 2:13 PM Exam Location: Echo Lab Exam Room: [facility] Patient Status: Inpatient Admit Date: 08/17/2024 Staff Ordering Physician: Jasmin Saucedo APRN Body Stylist: Nanci Matute RDCS Attending Provider: Jasmin Saucedo APRN Exam Type: CA echo doppler w bubble study Study Info Complete two-dimensional, color flow and Doppler transthoracic echocardiogram is performed with agitated saline. Summary 1. Left ventricular chamber dimension is normal. 2. Left ventricular systolic function is normal, estimated at 65-70%. 3. The left ventricular diastolic function is grade I diastolic dysfunction. 4. Left atrial chamber dimension is mildly enlarged. 5. The mitral valve has moderately calcified annulus. 6. The prox ascending aorta size is mildly dilated at 4.5 cm. Left Ventricle Tissue doppler E/e' was not performed. Left ventricular chamber dimension is normal. Left ventricular systolic function is normal, estimated at 65-70%. The left ventricular diastolic function is grade I diastolic dysfunction. Right Ventricle Right ventricular chamber dimension is normal. Right ventricular systolic function is normal. Left Atria Left atrial chamber dimension is mildly enlarged. Right Atria Right atrial chamber dimension is normal. Atrial Septum Agitated saline injection with and without valsalva maneuver opacified right side cardiac chambers without shunt to left side cardiac chambers. Intact interatrial septum visualized by 2D and agitated saline imaging. Aortic Valve The aortic valve is trileaflet. There is no aortic valve stenosis. There is no aortic valve regurgitation. Pulmonic Valve There is no pulmonic regurgitation. Mitral Valve The mitral valve has moderately calcified annulus. There is no mitral valve stenosis. There is no mitral valve regurgitation. Tricuspid Valve There is no tricuspid valve regurgitation. Pericardium/Pleural There is no pericardial effusion. Inferior Vena Cava Normal inferior vena cava with >50% collapse upon inspiration consistent with normal right atrial pressure, 5 mmHg. Aorta The prox ascending aorta size is mildly dilated at 4.5 cm. The aortic root size at the sinus of Valsalva is normal. Left Ventricular Outflow Tract Name Value Normal LVOT 2D LVOT Diameter 1.9 cm LVOT Doppler LVOT Peak Gradient 3 mmHg LVOT Mean Gradient 2 mmHg LVOT VTI 19 cm LVOT VTI/AV VTI Ratio 0.8 LVOT Stroke Volume 53 ml LVOT CO 4.0 l/min LVOT CI 2.1 l/min/m2 Pulmonic Valve Name Value Normal PV Doppler PV Peak Gradient 3 mmHg Tricuspid Valve Name Value Normal Estimated PAP/RSVP RA Pressure 5 mmHg <=5 Aortic Valve Name Value Normal AV Doppler AV Peak Velocity 120 cm/s AV Peak Gradient 6 mmHg AV Mean Gradient 3 mmHg AV VTI 25 cm AV Area (Cont Eq VTI) 2.1 cm2 >=3.0 AV Area (Cont Eq Bjorn) 2.0 cm2 AV Regurgitation 2D LVOT Area 2.7 cm2 Ventricles Name Value Normal LV Dimensions 2D/MM IVS Diastolic Thickness (2D) 0.7 cm 0.6-1.0 LVID Diastole (2D) 4.7 cm 3.8-5.2 LVIW Diastolic Thickness (2D) 0.8 cm 0.6-0.9 LVID Systole (2D) 3.5 cm 2.2-3.5 LVOT Diameter 1.9 cm LV Mass (2D Cubed) 113.29 g 67.00-162.00 LV Mass Index (2D Cubed) 60 g/m2 43-95 Relative Wall Thickness (2D) 0.36 LV Fractional Shortening/Ejection Fraction 2D/MM LV Fractional Shortening (2D) 26 % 27-45 LV EF (2D Teicholz) 51 % 54-74 LV Diastolic Volume (4C MOD) 88 ml LV EF (4C MOD) 45 % LV Diastolic Length (4C) 8.1 cm LV Systolic Length (4C) 7.4 cm LV Stroke Volume (4C MOD) 45 ml Atria Name Value Normal LA Dimensions LA Volume (4C A-L) 57 ml Report Signatures
[2024-08-18] MEDS: ACETAMINOPHEN 325 MG TABLET 650 MG PO ×2 (15:22→23:35)
[2024-08-18] MEDS: CLOPIDOGREL BISULFATE 300 MG TABLET PO (15:22)
[2024-08-18 17:07] LABS: Glucose Point of Care 200 mg/dl (65-105)
[2024-08-18 17:08] LABS: Glucose Point of Care 273 mg/dl (65-105)
[2024-08-18] MEDS: SODIUM CHLORIDE 0.9% IV 1,000 ML 125 ML IV CONT (17:15)
[2024-08-18 20:57] LABS: Glucose Point of Care 293 mg/dl (65-105)
--- NOTE | 2024-08-18 21:01 | PC.NURSE ---
Sravanthi Bowens notified of BP 191/76, per provider no treatment needed if BP remains <220/110
[2024-08-19] VITALS (11 sets, daily range): BP systolic 135–163; BP diastolic 62–86; PULSE 67–80; RESP 16–20; TEMP 36.2–36.8; O2SAT 95–98
[2024-08-19] MEDS: ACETAMINOPHEN 325 MG TABLET 650 MG PO ×3 (05:53→22:48)
[2024-08-19] MEDS: CLINDAMYCIN HCL 150 MG CAP 300 MG PO ×4 (05:53→22:48)
--- NOTE | 2024-08-19 07:12 | P.PNIM_ITS ---
Progress Note: A&P Assessment and Plan (1) DMII (diabetes mellitus, type 2): Code(s): E11.9 - Type 2 diabetes mellitus without complications Status: Acute Assessment and Plan: Uncontrolled Diabetes, hyperglycemia HgbA1c 11 Blood sugars elevated Lantus 10, Lispro 4<6 TID, increase as able. Additional 8 units lantus today High dose SSI (2) Dental infection: Code(s): K04.7 - Periapical abscess without sinus Status: Acute Assessment and Plan: Right facial/dental pain. s/p IV clinda, continue PO --Follow up with dentist (3) Dilated aortic root: Code(s): I77.810 - Thoracic aortic ectasia Status: Acute Assessment and Plan: TTE showed Chest x-ray & CT chest Likely yearly monitoring Fluids overnight (4) Hypertension, uncontrolled: Code(s): I10 - Essential (primary) hypertension Status: Acute Assessment and Plan: Reports frequently elevated blood pressures at home. Headache, no chest pain. Home meds: amlodipine 10mg daily, losartan 100/hctz 12.5mg daily. 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 Likely new CVA but no weakness to extremities. Speech, PT, and OT were consulted. Neurology consulted. --Started aspirin and plavix, increased atorvastatin Plan Hospital Course: Roseann Capellan is an 84 year old female hx diabetes, uncontrolled, HTN, CVA, who came for evaluation of left facial weakness, admitted for new facial weakness. Facial weakness Hx stroke Prior stroke involving the right basal ganglia and right internal capsule, and occlusion of distal left vertebral artery noted on CTA. Neurology evaluated and no weakness to extremities. Speech, PT, and OT were consulted. Neurology consulted. Started aspirin and plavix HTN, uncontrolled Reports frequently elevated blood pressures at home. Headache, no chest pain. Home meds: amlodipine 10mg daily, losartan 100/hctz 12.5mg daily. Adjusted meds while titrating carvedilol and for CT Permissive HTN Uncontrolled Diabetes, hyperglycemia HgbA1c 11 Blood sugars elevated. Home meds: Lantus 20 units daily. Changed to basal bolus during admission Blood sugars may be very elevated with steroids, monitoring overnight Dental pain Right facial/dental pain. s/p IV clinda, continue PO --Follow up with dentist Aortic Dilation TTE showed LVEF 65-70%. Chest x-ray & CT chest Likely TTE yearly if no acute findings on CT Fluids overnight 08/18 TTE LVEF 65-70% proximal ascending aorta size is mildly dilated at 4.5cm Time Spent With Patient Time: 67 minutes Subjective Date/time seen: 08/19/24 07:12 Interval history: Feeling better overall. Normal swallow with speech, was given exercises to do. Does not need follow up with speech Seen by OT and plans to go home with family Cardoza's palsy per neurology, starting steroids Blood sugars more elevated this evening Exam Narrative: General - Awake and alert. No acute distress Eyes - PERRLA, EOM intact ENT - No thrush, No erythema Neck - No noticeable or palpable swelling Lymph Nodes - No lymphadenopathy Cardiovascular - RRR no m/r/g, no JVD Lungs: Clear to auscultation, No wheezing, use of accessory muscles, no crackles or wheezes. Skin - Skin warm and dry, no wounds or rashes Abdomen - Normal bowel sounds, abdomen soft and nontender Extremities - No edema, cyanosis or clubbing Musculoskeletal - 5/5 strength, normal range of motion, no swollen or erythematous joints. Neurological ? Alert and oriented x 3, Facial weakness on the right side (forehead smoother, corner of mouth drooping). Left eye s/p surgery, unable to open fully, PERRLA right eye Upper and lower extremities strength equal. Shoulder shrug equal Right eye PERRLA. Strength equal bilaterally upper and lower extremities Psych: Normal mood and affect Objective Data Vital Signs Vital Signs: Vital Signs - 24 hr 08/18/24 08:00 08/18/24 08:00 08/18/24 12:00 Temperature 97.1 F L 97.3 F L Pulse Rate 71 73 93 Respiratory Rate 16 16 Blood Pressure 140/77 142/73 H Pulse Oximetry 97 99 08/18/24 12:00 08/18/24 16:00 08/18/24 16:00 Temperature 97.5 F L Pulse Rate 95 77 76 Respiratory Rate 16 Blood Pressure 160/75 H Pulse Oximetry 99 08/18/24 20:00 08/18/24 20:00 08/18/24 23:45 Temperature 97.8 F 97.7 F Pulse Rate 81 82 80 Respiratory Rate 18 18 Blood Pressure 191/76 H 168/78 H Pulse Oximetry 100 96 08/19/24 00:00 08/19/24 04:00 08/19/24 04:00 Temperature 97.8 F Pulse Rate 77 80 80 Respiratory Rate 20 Blood Pressure 163/74 H Pulse Oximetry 97 Intake/Output Intake/Output: Intake & Output 08/16/24 08/17/24 08/18/24 08/19/24 23:59 23:59 23:59 23:59 Intake Total 50 1270 1390 Balance 50 1270 1390 Meds/Results Medications: Active Medications Generic Name Dose Route Start Last Admin Trade Name Freq PRN Reason Stop Dose Admin Acetaminophen 650 mg 08/18/24 15:00 08/19/24 05:53 Acetaminophen 325 Mg Tablet PO 650 mg Q8H SATHISH Administration Amlodipine Besylate 10 mg 08/19/24 09:00 Amlodipine Besylate 10 Mg Tablet PO DAILY SATHISH Aspirin 81 mg 08/19/24 08:00 Aspirin 81 Mg Chewable Tablet PO DAILY@0800 STAHISH Atorvastatin Calcium 80 mg 08/18/24 09:00 08/18/24 09:36 Atorvastatin 40 Mg Tablet PO 80 mg DAILY SATHISH Administration Clindamycin HCl 300 mg 08/18/24 12:00 08/19/24 05:53 Clindamycin Hcl 150 Mg Cap PO 08/23/24 11:59 300 mg Q6HR SATHISH Administration Clopidogrel Bisulfate 75 mg 08/19/24 09:00 Clopidogrel Bisulfate 75 Mg Tablet PO QAM [facility] Dextrose 12.5 gm 08/18/24 08:00 Dextrose 50% 25 Gm/50 Ml Syringe IV PUSH PRN PRN Hypoglycemia Protocol Enoxaparin Sodium 40 mg 08/19/24 09:00 Enoxaparin 40 Mg/0.4 Ml Syringe SUB-Q DAILY SATHISH Glucagon 1 mg 08/18/24 08:00 Glucagon For Inj 1 Mg Vial IM PRN PRN Hypoglycemia Protocol Glucose 15 gm 08/18/24 08:00 Glucose Oral Gel 15 Gm Of Glucse In 37.5 Gm Tube PO PRN PRN Hypoglycemia Protocol Dextrose 1,000 mls @ 100 mls/hr 08/18/24 08:00 Dextrose 5% 1,000 Ml IVPB PRN PRN Hypoglycemia Protocol Insulin Aspart 4 units 08/18/24 12:00 08/18/24 17:15 Insulin Aspart (*Bkc) 100 Units/Ml SUB-Q 4 units TIDWM SATHISH Administration Insulin Glargine 10 units 08/18/24 09:00 08/18/24 09:37 Insulin Glargine (*Bkc) 100 Units/Ml SUB-Q 10 units DAILY SATHISH Administration Perflutren Lipid Microsphere 0 ml 08/18/24 11:33 Perflutren Lipid Microspheres 1.5 Ml Vial Diluted To 10 Ml Total Volume IV PUSH 08/21/24 11:33 ONCE PRN adequate visualization Protocol Radiology Results: ITS Impressions Head CT 08/17/24 20:34 IMPRESSION: 1. 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 I called this result to Dr. Bolanos. Head/Neck CTA 08/17/24 20:44 IMPRESSION: 1. 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 2. 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 3. 0% stenosis of the proximal internal carotid arteries relative to normal distal artery lumen diameters (NASCET criteria). Venous Doppler Study 08/17/24 22:11 IMPRESSION: 1. No deep venous thrombosis. Brain MRI 08/18/24 12:16 IMPRESSION: 1. 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 No acute intracranial process. 2. Age-related changes in the brain with mild diffuse volume loss and age- appropriate mild scattered white matter T2 hyperintensity consistent with chronic small vessel ischemic disease. 3. 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 Brain MRA 08/18/24 12:25 IMPRESSION: 1. 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 Neck MRA 08/18/24 15:03 IMPRESSION: 1. 0% stenosis of the right carotid bulb relative to normal distal artery lumen diameter (NASCET criteria). 2. 0% stenosis of the left carotid bulb relative to normal distal artery lumen diameter. 3. Right vertebral artery is dominant with diminutive left vertebral artery the distal intracranial portion of which occludes. 4. Fusiform ascending thoracic aortic aneurysm measuring up to 4.7 cm in maximal diameter. 5. Multinodular goiter. Labs Labs: Laboratory Results - last 24 hr 08/18/24 08/18/24 08/18/24 08:06 12:09 16:59 POC Capillary Glucose 181 H 273 H 200 H 08/18/24 20:30 POC Capillary Glucose 293 H Quality VTE Prophylaxis VTE prophylaxis: pharmacologic ordered Hospitalist MIPS Advance Care Plan I have confirmed that the patient's Advanced Care Plan is present, code status is documented, or surrogate decision maker is listed in patient medical record.: Yes Medication Reconciliation I have utilized all available resources to obtain, update and review the patients current medications (includes all prescriptions, OTC, herbals, cannabis, and nutritional supplements).: Yes
[2024-08-19 08:18] LABS: Glucose Point of Care 189 mg/dl (65-105)
[2024-08-19] MEDS: CLOPIDOGREL BISULFATE 75 MG TABLET PO (08:39)
[2024-08-19] MEDS: ATORVASTATIN 40 MG TABLET 80 MG PO (08:39)
[2024-08-19] MEDS: LOSARTAN POTASSIUM 100 MG TABLET PO (08:39)
[2024-08-19] MEDS: carvediloL 6.25 MG TABLET PO ×2 (08:39→21:20)
[2024-08-19] MEDS: amLODIPine BESYLATE 10 MG TABLET PO (08:39)
[2024-08-19] MEDS: ASPIRIN 81 MG CHEWABLE TABLET PO (08:40)
[2024-08-19] MEDS: ENOXAPARIN 40 MG/0.4 ML SYRINGE SUB-Q (08:40)
[2024-08-19] MEDS: INSULIN ASPART (*BKC) 100 UNITS/ML SUB-Q ×2 (08:40→12:17)
[2024-08-19] MEDS: INSULIN GLARGINE (*BKC) 100 UNITS/ML 10 UNITS SUB-Q (08:41)
[2024-08-19] MEDS: hydroCHLOROthiazide 12.5 MG CAPSULE PO (08:51)
[2024-08-19 12:02] LABS: Glucose Point of Care 272 mg/dl (65-105)
--- NOTE | 2024-08-19 13:42 | PCSTNOTE ---
Please refer to the Bedside Swallow Evaluation in the EMR. Please note, silent aspiration cannot be ruled out at bedside.
[2024-08-19] MEDS: INSULIN GLARGINE (*BKC) 100 UNITS/ML 8 UNITS SUB-Q (16:03)
--- NOTE | 2024-08-19 16:25 | P.CONNEU_ITS ---
Assessment and Plan Assessment and plan (1) Right-sided Cardoza's palsy: Code(s): G51.0 - Cardoza's palsy Status: Acute (2) DMII (diabetes mellitus, type 2): Code(s): E11.9 - Type 2 diabetes mellitus without complications Status: Acute (3) History of cerebrovascular disease: Code(s): Z86.79 - Personal history of other diseases of the circulatory system Status: Acute (4) Occlusion of left vertebral artery: Code(s): I65.02 - Occlusion and stenosis of left vertebral artery Status: Acute Plan The finding of previous stroke on MRI of the brain as well as CT scan of brain and occlusion of the left vertebral artery would appear to be coincidental and not the cause which is most likely an intranuclear right facial weakness or so called Cardoza's palsy. Her him a when A1c was 11.2 and hence given a steroid will not be without problem unless the family under text watch her blood glucose and give her insulin to cover for the next 1 or 2 weeks. If this is chosen you can give her prednisone 60 mg and go down at a rate of 10 mg a day to completely stop over the course of next 5-7 days to help speed up the recovery. I do not see any features to suggest Khadijah Aponte syndrome at this time. The patient is still able to close her eye more than 50% and hence he does not require any extra precautions nevertheless if necessary artificial tears can be used. Sometimes the weakness can get worse in the 1st few days after the onset. And hence these tests may help. I have advised her that test sometime during the recovery synkinesis may occur. Attention to follow-up recovery is recommended. she is already on aspirin 81 mg a day and atorvastatin 80 make a day and clopidogrel 75 mg a day from the point of view of cerebrovascular disease and this could be continued and should be followed up by her 5th chance of pointed this of course will be general precaution considering the history of stroke and diabetes mellitus. The a occluded left vertebral artery does not itself require any intervention at this time. Consult date: 08/19/24 HPI: Roseann Tracey is a 84 year old female Visiting her family from [place] year presented with the onset of right facial weakness which started 2 days ago. She does have history of CVA a year ago. He has also history of diabetes mellitus. Patient is hard of hearing and has a hearing aid on the right side. She developed right-sided facial weakness but no weakness in the arms or legs. Blisters in the mouth or no significant pain but has some discomfort on the right side of the face. She had injury to the left eye 30 years ago and she is unable to lift open her left eye fully. His speech is somewhat slurred but she has no difficulty with eating or drinking or with speech in general compared to prior to onset of the symptoms. Several family members are present at the time of the evaluation. One of her remember works in Radiology and was very helpful in interpretation Since the patient is S speaking. It was noted that the CT scan of brain has shown old infarct in the right basal ganglia region and right internal capsule. CT angiogram the head and neck has shown old infarct involving right basal ganglia internal capsule but total occlusion of the left distal vertebral artery but no significant narrowing in the internal carotid arteries. Review of Systems 2 Review of Systems: Patient denies any recent febrile illness or trauma All systems reviewed & are unremarkable except as noted in HPI and below PMFSH Past Medical History Medical History (Updated 08/19/24 @ 16:32 by Wilberto Gonzalez MD) Occlusion of left vertebral artery History of cerebrovascular disease Right-sided Cardoza's palsy History of hyperlipidemia History of hypertension History of diabetes mellitus Social History Social History (Updated 08/17/24 @ 22:36 by Marcia Burrows PA-C) Smoking status: Never smoker Alcohol intake: never Substance use: never Do You Feel Safe in your Home?: Yes Lack of Transportation: No Lack of Food: Never True Current Housing: I Have Housing Concerned About Future Housing: No Difficulty Paying Gas/Electric Bills: No Difficulty Paying for Meds: No Currently Unemployed: No Education: Never Attended/Kindergarten Only Difficulty w/ Childcare or Family Care: No Spiritual care concerns: No Meds Home Medications and Allergies Home Medications ?Medication ?Instructions ?Recorded ?Confirmed ?Type amlodipine 10 mg tablet 10 mg PO DAILY 08/18/24 08/18/24 History atorvastatin 40 mg tablet 40 mg PO HS 08/18/24 08/18/24 History cholecalciferol (vitamin D3) 1,250 1,250 mcg PO WEEKLY 08/18/24 08/18/24 History mcg (50,000 unit) capsule insulin glargine 100 unit/mL (3 20 unit subcut DAILY 08/18/24 08/18/24 History mL) subcutaneous pen (Lantus Solostar U-100 Insulin) losartan 100 1 tablet PO DAILY 08/18/24 08/18/24 History mg-hydrochlorothiazide 12.5 mg tablet multivitamin with folic acid 400 1 tablet PO DAILY 08/18/24 08/18/24 History mcg tablet (Tab-A-Rhona) pantoprazole 40 mg tablet,delayed 40 mg PO DAILY 08/18/24 08/18/24 History release Allergies Allergy/AdvReac Type Severity Reaction Status Date / Time Penicillins Allergy Severe Anaphylaxis Verified 08/18/24 00:47 Vital Signs Vital Signs - 24 hr 08/18/24 20:00 08/18/24 20:00 08/18/24 23:45 Temperature 97.8 F 97.7 F Pulse Rate 81 82 80 Respiratory Rate 18 18 Blood Pressure 191/76 H 168/78 H Pulse Oximetry 100 96 Oxygen Delivery 08/19/24 00:00 08/19/24 04:00 08/19/24 04:00 Temperature 97.8 F Pulse Rate 77 80 80 Respiratory Rate 20 Blood Pressure 163/74 H Pulse Oximetry 97 Oxygen Delivery 08/19/24 08:00 08/19/24 08:39 08/19/24 09:43 Temperature Pulse Rate 67 70 Respiratory Rate Blood Pressure Pulse Oximetry Oxygen Delivery Room Air 08/19/24 11:15 08/19/24 12:00 Temperature 97.6 F Pulse Rate 72 72 Respiratory Rate 16 Blood Pressure 135/62 Pulse Oximetry 96 Oxygen Delivery Exam 2 Const: General: cooperative, well developed and alert Other: in conversations through her family members she appears to be fairly oriented and does not show any cognitive impairment. HENMT: Head: atraumatic Mouth: Yes oropharynx normal Other: No blisters were noted in the oropharynx. Patient has a hearing aid in place on the right side. Eyes: Alignment and Position: position normal EOM: EOMs intact bilaterally Other: She tends to gone to keep the left eye closed. Neck: Neck: supple Resp: Effort & Inspection: normal respiratory effort Cardio: Rate: regular rate Neuro: Cranial nerves: Yes Midline tongue present Cognition (Neuro): normal cognition Speech: normal speech Motor exam (neuro): 5/5 motor strength present throughout Sensory Exam: normal sensation Coordination: f [id number] test normal and Normal rapid alternating movements of the distal upper extremity present (Neuro) Other: right infra nuclear facial weakness otherwise other cranial nerves were within acceptable normal limits. Results Labs 08/17/24 20:25 08/17/24 20:28
[2024-08-19 17:04] LABS: Glucose Point of Care 210 mg/dl (65-105)
[2024-08-19] MEDS: INSULIN ASPART (*BKC) 100 UNITS/ML 6 UNITS SUB-Q (17:14)
[2024-08-19] MEDS: predniSONE 20 MG TABLET 60 MG PO (17:23)
[2024-08-19] MEDS: SODIUM CHLORIDE 0.9% IV 1,000 ML 100 ML IV CONT (18:42)
[2024-08-19 20:28] LABS: Glucose Point of Care 198 mg/dl (65-105)
[2024-08-20] VITALS (12 sets, daily range): BP systolic 119–150; BP diastolic 66–76; PULSE 79–95; RESP 17–18; TEMP 36.1–36.8; O2SAT 96–100
[2024-08-20] MEDS: SODIUM CHLORIDE 0.9% IV 1,000 ML 100 ML IV CONT (01:18)
[2024-08-20] MEDS: CLINDAMYCIN HCL 150 MG CAP 300 MG PO ×2 (06:07→12:01)
[2024-08-20] MEDS: ACETAMINOPHEN 325 MG TABLET 650 MG PO ×3 (06:07→21:08)
[2024-08-20 08:05] LABS: Glucose Point of Care 240 mg/dl (65-105)
[2024-08-20 08:32] LABS: Basophils Percent Auto 0.2 % (0.2-1.2); Hematocrit 40.8 % (37.0-47.0); Hemoglobin 13.6 g/dL (12.0-15.0); Immature Granulocyte Absolute 0.04 K/mm3 (0.00-0.031); Immature Granulocyte Percent A 0.3 % (0-0.5); Lymphocytes Absolute Auto 1.79 K/mm3 (0.9-3.2); Lymphocytes Percent Auto 14.3 % (18.3-44.2); Mean Corpuscular HGB Conc 33.3 g/dl (32-36); Mean Corpuscular Hemoglobin 29.6 pg (26-34); Mean Corpuscular Volume 88.7 fl (80-100); Mean Platelet Volume 9.3 fl (7.4-10.4); Monocytes Absolute Auto 0.3 K/mm3 (0.1-0.6); Monocytes Percent Auto 2.3 % (2.6-8.5); Neutrophils Absolute Auto 10.4 K/mm3 (1.3-6.7); Neutrophils Percent Auto 82.9 % (45.5-73.1); Platelet Count Result 250 k/mm3 (150-375); Red Cell Distribution Width 11.9 % (11.5-14.5); White Blood Count 12.5 K/mm3 (4.5-10.0)
--- NOTE | 2024-08-20 08:36 | P.PNIM_ITS ---
Progress Note: A&P Assessment and Plan (1) DMII (diabetes mellitus, type 2): Code(s): E11.9 - Type 2 diabetes mellitus without complications Status: Acute Assessment and Plan: Uncontrolled Diabetes, hyperglycemia HgbA1c 11. Blood sugars more elevated in the setting of steroids Lantus 18 08/19, increased to 25units 08/20 with steroids Lispro 4<6<10 TID. 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 Discussed managing blood sugars while on steroids but will likely be admitted for IV antibiotics for UTI to complete steroids, last day 08/18-08/24 Discussed with family and agreeable to starting metformin for discharge (2) Dental infection: Code(s): K04.7 - Periapical abscess without sinus Status: Acute Assessment and Plan: Right facial/dental pain. s/p IV & PO clinda --On meropenem for UTI --Follow up with dentist (3) Hypertension, uncontrolled: Code(s): I10 - Essential (primary) hypertension Status: Acute Assessment and Plan: Reports frequently elevated blood pressures at home. Headache, no chest pain. Home meds: amlodipine 10mg daily, losartan 100/hctz 12.5mg daily. --Started carvedilol 6.25<12.5 BID, reduced losartan to 50>25, held hctz --Continuing amlodipine 10mg --Continue to titrate meds (4) Aortic aneurysm: Code(s): I71.9 - Aortic aneurysm of unspecified site, without rupture Status: Acute Assessment and Plan: TTE showed LVEF 65-70%. Chest x-ray & CT chest showed an ascending aortic aneurysm. 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 coli] as the cause of diseases classified elsewhere Status: Acute Assessment and Plan: No flank pain but now reporting dysuria. Urine culture growing resistant e coli Report of anaphylaxis in chart from [facility] but discussed with daughter at bedside and may have been a rash and not swelling or shortness of breath. But was in [place] and she has no way to verify and doesn't think her mom will know. Urine culture with resistance to multiple antibiotics. --Stop nitrofurantoin. Start Meropenem --Could consider a trial of Unasyn/Augmentin. Discussed that option with family but holding off for now --Monitor for rash or other symptoms. 1. Escherichia Coli M.I.C. RX --------- --- Amoxicillin/Clavulanate <=2 S Ampicillin/Sulbactam 4 S Cefazolin >=64 R For uncomplicated UTI caused by E. coli, K. pneumoniae or P. mirabilis: Cefazolin is susceptible if DENIA <32 mcg/mL and predicts susceptible to the oral agents cefaclor, cefdinir, cefpodoxime, cefprozil, cefuroxime, cephalexin and loracarbef. 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 Prior stroke likely an incidental finding per neurology No weakness to extremities. Weakness to right side of face includes forehead. Right sided facial weakness. Neurology evaluated, appreciate recommendations Started steroids with improving weakness. Facial pain resolved and no evidence of Garcia Aponte syndrome so deferred antiviral medications Speech, PT, and OT were consulted, planning home with family. No modifications to diet, was given exercises for facial strengthening. --Continued aspirin and started plavix, increased atorvastatin Plan Hospital Course as of 08/20: Roseann Capellan is an 84 year old female hx diabetes, uncontrolled, HTN, CVA, who came for evaluation of left facial weakness, admitted for new facial weakness, diagnosed with Cardoza's palsy and started on steroids. 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 Prior stroke likely an incidental finding per neurology No weakness to extremities. Weakness to right side of face includes forehead. Right sided facial weakness. Neurology evaluated and recommended steroids Speech, PT, and OT were consulted. -- Continued aspirin and started plavix, increased atorvastatin HTN, uncontrolled Reports frequently elevated blood pressures in the 190's at home. Headache intermittently, no chest pain. Home meds: amlodipine 10mg daily, losartan 100/hctz 12.5mg daily. Adjusted meds for better blood pressure control. Continued amlodipine. Started coreg, seemed to have better control, and reduced losartan/hctz Uncontrolled Diabetes, hyperglycemia HgbA1c 11 Blood sugars elevated. Home meds: Lantus 20 units daily. Changed to basal bolus during admission Increased Lantus and mealtime insulin with prednisone. 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 Dental pain Right facial/dental pain. s/p IV clinda, continued but then continued meropenem for UTI --Follow up with dentist UTI Urine culture growing ecoli resistant to multiple antibiotics. Stopped nitrofurantoin. Started meropenem since having dysuria. No flank pain Gallbladder stones/sludge Incidental finding on CT. No evidence of acute cholecystitis. LFT's --Outpatient follow up with PCP. Aortic Dilation TTE showed LVEF 65-70%. Chest x-ray & CT chest showed an ascending aortic aneurysm. Will need follow up imaging every 6months-1 year, likely TTE Control of blood pressure as noted 08/18 TTE LVEF 65-70% proximal ascending aorta size is mildly dilated at 4.5cm 08/19 CTA 4.6 cm diameter ascending aortic aneurysm Thyromegaly with bilateral macrocalcifications, cysts Peripheral interstitial thickening of the lungs which might be consistent with usual interstitial pneumonia type pulmonary interstitial fibrosis Sludge and/or stones in the gallbladder lumen Small sliding hiatal hernia Diffuse idiopathic skeletal hyperostosis of the lower thoracic spine Time Spent With Patient Time: 75 minutes Subjective Date/time seen: 08/20/24 08:36 Interval history: Reporting dysuria [place] Urine culture resistant to multiple antibiotics. Allergy to PCN Right sided facial droop improving with steroids. Blood sugars elevated on Prednisone, 200's prior to breakfast and lunch with 10 units In the 300's after meals. Normal swallow with speech, was given exercises to do. Does not need follow up with speech Seen by OT and plans to go home with family Information obtained in [facility] from family at bedside assisting in translation Exam Narrative: General - Awake and alert. No acute distress Eyes - PERRLA, EOM intact ENT - No thrush, No erythema Neck - No noticeable or palpable swelling Lymph Nodes - No lymphadenopathy Cardiovascular - RRR no m/r/g, no JVD Lungs: Clear to auscultation, No wheezing, use of accessory muscles, no crackles or wheezes. Skin - Skin warm and dry, no wounds or rashes Abdomen - Normal bowel sounds, abdomen soft and nontender Extremities - No edema, cyanosis or clubbing Musculoskeletal - 5/5 strength, normal range of motion, no swollen or erythematous joints. Neurological ? Alert and oriented x 3, Facial weakness on the right side (forehead smoother, corner of mouth drooping, improving). Left eye s/p surgery, unable to open fully, PERRLA right eye Upper and lower extremities strength equal. Shoulder shrug equal Right eye PERRLA. Strength equal bilaterally upper and lower extremities Psych: Normal mood and affect Objective Data Vital Signs Vital Signs: Vital Signs - 24 hr 08/19/24 08:39 08/19/24 09:43 08/19/24 11:15 Temperature 97.6 F Pulse Rate 70 72 Respiratory Rate 16 Blood Pressure 135/62 Pulse Oximetry 96 Oxygen Delivery Room Air 08/19/24 12:00 08/19/24 15:53 08/19/24 16:00 Temperature 97.2 F L Pulse Rate 72 76 70 Respiratory Rate 16 Blood Pressure 151/76 H Pulse Oximetry 95 Oxygen Delivery 08/19/24 20:00 08/19/24 20:00 08/19/24 21:20 Temperature 97.1 F L Pulse Rate 70 71 72 Respiratory Rate 16 Blood Pressure 155/86 H Pulse Oximetry 98 Oxygen Delivery 08/19/24 23:58 08/20/24 00:00 08/20/24 04:00 Temperature 98.3 F Pulse Rate 76 79 85 Respiratory Rate 18 Blood Pressure 141/63 H Pulse Oximetry 96 Oxygen Delivery 08/20/24 04:00 Temperature 98.3 F Pulse Rate 84 Respiratory Rate 18 Blood Pressure 137/67 Pulse Oximetry 96 Oxygen Delivery Intake/Output Intake/Output: Intake & Output 08/17/24 08/18/24 08/19/24 08/20/24 23:59 23:59 23:59 23:59 Intake Total 50 1270 2600 1010 Balance 50 1270 2600 1010 Meds/Results Medications: Active Medications Generic Name Dose Route Start Last Admin Trade Name Freq PRN Reason Stop Dose Admin Acetaminophen 650 mg 08/18/24 15:00 08/20/24 06:07 Acetaminophen 325 Mg Tablet PO 650 mg Q8H SATHISH Administration Amlodipine Besylate 10 mg 08/19/24 09:00 08/19/24 08:39 Amlodipine Besylate 10 Mg Tablet PO 10 mg DAILY SATHISH Administration Aspirin 81 mg 08/19/24 08:00 08/19/24 08:40 Aspirin 81 Mg Chewable Tablet PO 81 mg DAILY@0800 SATHISH Administration Atorvastatin Calcium 80 mg 08/18/24 09:00 08/19/24 08:39 Atorvastatin 40 Mg Tablet PO 80 mg DAILY SATHISH Administration Carvedilol 6.25 mg 08/19/24 09:00 08/19/24 21:20 Carvedilol 6.25 Mg Tablet PO 6.25 mg Q12HR SATHISH Administration Clindamycin HCl 300 mg 08/18/24 12:00 08/20/24 06:07 Clindamycin Hcl 150 Mg Cap PO 08/23/24 11:59 300 mg Q6HR SATHISH Administration Clopidogrel Bisulfate 75 mg 08/19/24 09:00 08/19/24 08:39 Clopidogrel Bisulfate 75 Mg Tablet PO 75 mg QAM SATHISH Administration Dextrose 12.5 gm 08/18/24 08:00 Dextrose 50% 25 Gm/50 Ml Syringe IV PUSH PRN PRN Hypoglycemia Protocol Enoxaparin Sodium 40 mg 08/19/24 09:00 08/19/24 08:40 Enoxaparin 40 Mg/0.4 Ml Syringe SUB-Q 40 mg DAILY SATHISH Administration Glucagon 1 mg 08/18/24 08:00 Glucagon For Inj 1 Mg Vial IM PRN PRN Hypoglycemia Protocol Glucose 15 gm 08/18/24 08:00 Glucose Oral Gel 15 Gm Of Glucse In 37.5 Gm Tube PO PRN PRN Hypoglycemia Protocol Hydrochlorothiazide 12.5 mg 08/19/24 09:00 08/19/24 08:51 Hydrochlorothiazide 12.5 Mg Capsule PO 12.5 mg DAILY SATHISH Administration Dextrose 1,000 mls @ 100 mls/hr 08/18/24 08:00 Dextrose 5% 1,000 Ml IVPB PRN PRN Hypoglycemia Protocol Insulin Aspart 6 units 08/19/24 17:00 08/19/24 17:14 Insulin Aspart (*Bkc) 100 Units/Ml SUB-Q 6 units TIDWM SATHISH Administration Insulin Glargine 25 units 08/20/24 09:00 Insulin Glargine (*Bkc) 100 Units/Ml SUB-Q DAILY SATHISH Losartan Potassium 50 mg 08/20/24 09:00 Losartan Potassium 50 Mg Tablet PO DAILY [facility] Multivitamins Therapeutic 1 tablet 08/20/24 09:00 Multivitamins Therapeutic Tab (*Bkc) PO DAILY SATHISH Pantoprazole Sodium 40 mg 08/20/24 09:00 Pantoprazole 40 Mg Tablet PO DAILY SATHISH Perflutren Lipid Microsphere 0 ml 08/18/24 11:33 Perflutren Lipid Microspheres 1.5 Ml Vial Diluted To 10 Ml Total Volume IV PUSH 08/21/24 11:33 ONCE PRN adequate visualization Protocol Prednisone 60 mg 08/19/24 17:20 08/19/24 17:23 Prednisone 20 Mg Tablet PO 60 mg DAILY@0800 SATHISH Administration Radiology Results: ITS Impressions Head CT 08/17/24 20:34 IMPRESSION: 1. 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 I called this result to Dr. Bolanos. Head/Neck CTA 08/17/24 20:44 IMPRESSION: 1. 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 2. 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 3. 0% stenosis of the proximal internal carotid arteries relative to normal distal artery lumen diameters (NASCET criteria). Venous Doppler Study 08/17/24 22:11 IMPRESSION: 1. No deep venous thrombosis. Brain MRI 08/18/24 12:16 IMPRESSION: 1. 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 No acute intracranial process. 2. Age-related changes in the brain with mild diffuse volume loss and age- appropriate mild scattered white matter T2 hyperintensity consistent with chronic small vessel ischemic disease. 3. 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 Brain MRA 08/18/24 12:25 IMPRESSION: 1. 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 Neck MRA 08/18/24 15:03 IMPRESSION: 1. 0% stenosis of the right carotid bulb relative to normal distal artery lumen diameter (NASCET criteria). 2. 0% stenosis of the left carotid bulb relative to normal distal artery lumen diameter. 3. Right vertebral artery is dominant with diminutive left vertebral artery the distal intracranial portion of which occludes. 4. Fusiform ascending thoracic aortic aneurysm measuring up to 4.7 cm in maximal diameter. 5. Multinodular goiter. Chest X-Ray 08/19/24 16:55 IMPRESSION: Cardiomegaly Aortic atherosclerosis No active pulmonary disease Osteopenia Degenerative spurring of the thoracic spine Bilateral thyroid calcifications Chest CTA 08/19/24 16:59 IMPRESSION: 4.6 cm diameter ascending aortic aneurysm Thyromegaly with bilateral macrocalcifications, cysts Peripheral interstitial thickening of the lungs which might be consistent with usual interstitial pneumonia type pulmonary interstitial fibrosis Sludge and/or stones in the gallbladder lumen Small sliding hiatal hernia Diffuse idiopathic skeletal hyperostosis of the lower thoracic spine Labs Labs: Laboratory Results - last 24 hr 08/19/24 08/19/24 08/19/24 11:57 17:01 20:19 POC Capillary Glucose 272 H 210 H 198 H 08/20/24 08:01 POC Capillary Glucose 240 H Quality VTE Prophylaxis VTE prophylaxis: pharmacologic ordered Hospitalist MIPS Advance Care Plan I have confirmed that the patient's Advanced Care Plan is present, code status is documented, or surrogate decision maker is listed in patient medical record.: Yes Medication Reconciliation I have utilized all available resources to obtain, update and review the patients current medications (includes all prescriptions, OTC, herbals, cannabis, and nutritional supplements).: Yes
[2024-08-20 08:44] LABS: Alanine Aminotransferase 37 U/L (6-35); Albumin Level 3.5 g/dL (3.5-5.1); Alkaline Phosphatase 101 U/L (38-126); Anion Gap 4 mmol/L (4-12); Aspartate Amino Transferase 30 U/L (14-36); Bilirubin,Total 0.6 mg/dL (0.2-1.3); Blood Urea Nitrogen 19 mg/dL (7-17); Calcium 9.4 mg/dL (8.4-10.2); Carbon Dioxide 25 mmol/L (22-30); Chloride 105 mmol/L (98-107); Cholesterol 102 mg/dL (0-200); Estimated CRCL calculation 51 ml/min; Estimated Glomerular Filt Rate > 60; Glucose 235 mg/dL (65-110); HDL Direct 37 mg/dL; Sodium 134 mmol/L (137-145); Triglycerides 54 mg/dL (<150)
[2024-08-20] MEDS: ATORVASTATIN 40 MG TABLET 80 MG PO (08:47)
[2024-08-20] MEDS: ASPIRIN 81 MG CHEWABLE TABLET PO (08:47)
[2024-08-20] MEDS: predniSONE 20 MG TABLET 60 MG PO (08:47)
[2024-08-20] MEDS: carvediloL 6.25 MG TABLET PO (08:47)
[2024-08-20] MEDS: amLODIPine BESYLATE 10 MG TABLET PO (08:47)
[2024-08-20] MEDS: ENOXAPARIN 40 MG/0.4 ML SYRINGE SUB-Q (08:48)
[2024-08-20] MEDS: CLOPIDOGREL BISULFATE 75 MG TABLET PO (08:48)
[2024-08-20] MEDS: PANTOPRAZOLE 40 MG TABLET PO (08:48)
[2024-08-20] MEDS: LOSARTAN POTASSIUM 50 MG TABLET PO (08:48)
[2024-08-20] MEDS: MULTIVITAMINS THERAPEUTIC TAB (*BKC) 1 TABLET PO (08:48)
[2024-08-20] MEDS: INSULIN ASPART (*BKC) 100 UNITS/ML 6 UNITS SUB-Q (08:49)
[2024-08-20] MEDS: INSULIN GLARGINE (*BKC) 100 UNITS/ML 25 UNITS SUB-Q (08:49)
[2024-08-20 08:55] LABS: LDL Cholesterol Direct 46 mg/dL
[2024-08-20 10:40] LABS: Glucose Point of Care 328 mg/dl (65-105)
[2024-08-20 11:52] LABS: Glucose Point of Care 267 mg/dl (65-105)
[2024-08-20] MEDS: INSULIN ASPART (*BKC) 100 UNITS/ML 10 UNITS SUB-Q ×2 (12:02→17:13)
[2024-08-20 13:35] LABS: Glucose Point of Care 310 mg/dl (65-105)
[2024-08-20 16:35] LABS: Glucose Point of Care 268 mg/dl (65-105)
[2024-08-20] MEDS: MEROPENEM 1 GM/NS 100 ML 1 GM/100 ML BAG IVPB ×2 (16:36→21:08)
[2024-08-20] MEDS: INSULIN ASPART (*BKC) 100 UNITS/ML SUB-Q (17:13)
[2024-08-20 20:28] LABS: Glucose Point of Care 254 mg/dl (65-105)
[2024-08-20] MEDS: carvediloL 12.5 MG TABLET PO (21:08)
[2024-08-21] VITALS (7 sets, daily range): BP systolic 118–145; BP diastolic 59–93; PULSE 62–76; RESP 12–20; TEMP 36.4–36.5; O2SAT 97–100; BMI 33.1
[2024-08-21] MEDS: MEROPENEM 1 GM/NS 100 ML 1 GM/100 ML BAG IVPB ×3 (05:46→22:25)
[2024-08-21 08:31] LABS: Glucose Point of Care 136 mg/dl (65-105)
[2024-08-21] MEDS: carvediloL 12.5 MG TABLET PO ×2 (08:47→21:01)
[2024-08-21] MEDS: ACETAMINOPHEN 325 MG TABLET 650 MG PO ×3 (08:48→21:03)
[2024-08-21] MEDS: CLOPIDOGREL BISULFATE 75 MG TABLET PO (08:48)
[2024-08-21] MEDS: LOSARTAN POTASSIUM 25 MG TABLET PO (08:48)
[2024-08-21] MEDS: MULTIVITAMINS THERAPEUTIC TAB (*BKC) 1 TABLET PO (08:48)
[2024-08-21] MEDS: amLODIPine BESYLATE 10 MG TABLET PO (08:48)
[2024-08-21] MEDS: ENOXAPARIN 40 MG/0.4 ML SYRINGE SUB-Q (08:48)
[2024-08-21] MEDS: PANTOPRAZOLE 40 MG TABLET PO (08:48)
[2024-08-21] MEDS: ATORVASTATIN 40 MG TABLET 80 MG PO (08:48)
[2024-08-21] MEDS: predniSONE 20 MG TABLET 60 MG PO (08:48)
[2024-08-21] MEDS: ASPIRIN 81 MG CHEWABLE TABLET PO (08:48)
[2024-08-21] MEDS: INSULIN ASPART (*BKC) 100 UNITS/ML 10 UNITS SUB-Q ×3 (08:49→16:46)
[2024-08-21] MEDS: INSULIN GLARGINE (*BKC) 100 UNITS/ML 25 UNITS SUB-Q (08:49)
[2024-08-21 10:08] LABS: Basophils Percent Auto 0.3 % (0.2-1.2); Eosinophils Absolute Auto 0.1 K/mm3 (0-0.3); Eosinophils Percent Auto 0.4 % (0-4.4); Hematocrit 42.3 % (37.0-47.0); Hemoglobin 14.1 g/dL (12.0-15.0); Immature Granulocyte Absolute 0.04 K/mm3 (0.00-0.031); Immature Granulocyte Percent A 0.4 % (0-0.5); Lymphocytes Absolute Auto 2.97 K/mm3 (0.9-3.2); Lymphocytes Percent Auto 26.3 % (18.3-44.2); Mean Corpuscular HGB Conc 33.3 g/dl (32-36); Mean Platelet Volume 9.7 fl (7.4-10.4); Monocytes Absolute Auto 0.6 K/mm3 (0.1-0.6); Monocytes Percent Auto 5.1 % (2.6-8.5); Neutrophils Absolute Auto 7.6 K/mm3 (1.3-6.7); Neutrophils Percent Auto 67.5 % (45.5-73.1); Platelet Count Result 252 k/mm3 (150-375); Red Cell Distribution Width 11.9 % (11.5-14.5); White Blood Count 11.3 K/mm3 (4.5-10.0)
[2024-08-21 10:23] LABS: Alanine Aminotransferase 37 U/L (6-35); Albumin Level 3.8 g/dL (3.5-5.1); Alkaline Phosphatase 94 U/L (38-126); Anion Gap 5 mmol/L (4-12); Aspartate Amino Transferase 31 U/L (14-36); Bilirubin,Total 0.6 mg/dL (0.2-1.3); Blood Urea Nitrogen 21 mg/dL (7-17); Calcium 9.5 mg/dL (8.4-10.2); Carbon Dioxide 26 mmol/L (22-30); Chloride 105 mmol/L (98-107); Estimated CRCL calculation 45 ml/min; Estimated Glomerular Filt Rate > 60; Glucose 192 mg/dL (65-110); Magnesium 1.9 mg/dL (1.6-2.3); Potassium 3.6 mmol/L (3.4-5.0); Sodium 136 mmol/L (137-145)
--- NOTE | 2024-08-21 10:26 | PM.IMPN ---
Progress Note: A&P Assessment and Plan (1) DMII (diabetes mellitus, type 2): Code(s): E11.9 - Type 2 diabetes mellitus without complications Status: Acute Assessment and Plan: Uncontrolled Diabetes, hyperglycemia HgbA1c 11.2% Blood sugars more elevated in the setting of steroids Lantus 18 08/19, increased to 25units 08/20 with steroids Lispro 4<6<10 TID. Moderate dose SSI Materials Manager and museum educator consulted. Discussed managing blood sugars while on steroids but will likely be admitted for IV antibiotics for UTI to complete steroids, last day 08/18-08/24 Discussed with family and agreeable to starting metformin for discharge (2) Dental infection: Code(s): K04.7 - Periapical abscess without sinus Status: Acute Assessment and Plan: Right facial/dental pain. s/p IV & PO clinda --On meropenem for UTI --Follow up with dentist (3) Hypertension, uncontrolled: Code(s): I10 - Essential (primary) hypertension Status: Acute Assessment and Plan: Reports frequently elevated blood pressures at home. Headache, no chest pain. Home meds: amlodipine 10mg daily, losartan 100/hctz 12.5mg daily. --Started carvedilol 6.25<12.5 BID, reduced losartan to 50>25, held hctz --Continuing amlodipine 10mg --Continue to titrate meds (4) Aortic aneurysm: Code(s): I71.9 - Aortic aneurysm of unspecified site, without rupture Status: Acute Assessment and Plan: TTE showed LVEF 65-70%. Chest x-ray & CT chest showed an ascending aortic aneurysm. 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 coli] as the cause of diseases classified elsewhere Status: Acute Assessment and Plan: No flank pain but now reporting dysuria. Urine culture growing resistant e coli Report of anaphylaxis in chart from [facility] but discussed with daughter at bedside and may have been a rash and not swelling or shortness of breath. But was in [place] and she has no way to verify and doesn't think her mom will know. Urine culture with resistance to multiple antibiotics. --Stop nitrofurantoin. Start Meropenem --Could consider a trial of Unasyn/Augmentin. Discussed that option with family but holding off for now --Monitor for rash or other symptoms. 1. Escherichia Coli M.I.C. RX --------- --- Amoxicillin/Clavulanate <=2 S Ampicillin/Sulbactam 4 S Cefazolin >=64 R For uncomplicated UTI caused by E. coli, K. pneumoniae or P. mirabilis: Cefazolin is susceptible if DENIA <32 mcg/mL and predicts susceptible to the oral agents cefaclor, cefdinir, cefpodoxime, cefprozil, cefuroxime, cephalexin and loracarbef. 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 Prior stroke likely an incidental finding per neurology No weakness to extremities. Weakness to right side of face includes forehead. Right sided facial weakness. Neurology evaluated, appreciate recommendations Started steroids with improving weakness. Facial pain resolved and no evidence of Garcia Aponte syndrome so deferred antiviral medications Speech, PT, and OT were consulted, planning home with family. No modifications to diet, was given exercises for facial strengthening. --Continued aspirin and started plavix, increased atorvastatin Plan Hospital Course as of 08/20: Roseann Capellan is an 84 year old female hx diabetes, uncontrolled, HTN, CVA, who came for evaluation of left facial weakness, admitted for new facial weakness, diagnosed with Cardoza's palsy and started on steroids. 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 Prior stroke likely an incidental finding per neurology No weakness to extremities. Weakness to right side of face includes forehead. Right sided facial weakness. Neurology evaluated and recommended steroids Speech, PT, and OT were consulted. -- Continued aspirin and started plavix, increased atorvastatin HTN, uncontrolled Reports frequently elevated blood pressures in the 190's at home. Headache intermittently, no chest pain. Home meds: amlodipine 10mg daily, losartan 100/hctz 12.5mg daily. Adjusted meds for better blood pressure control. Continued amlodipine. Started coreg, seemed to have better control, and reduced losartan/hctz Uncontrolled Diabetes, hyperglycemia HgbA1c 11 Blood sugars elevated. Home meds: Lantus 20 units daily. Changed to basal bolus during admission Increased Lantus and mealtime insulin with prednisone. Discussed diet modifications and consulted museum educator and fabrication and layout craftsman Discussed starting metformin for discharge. Dental pain Right facial/dental pain. s/p IV clinda, continued but then continued meropenem for UTI --Follow up with dentist UTI Urine culture growing ecoli resistant to multiple antibiotics. Stopped nitrofurantoin. Started meropenem since having dysuria. No flank pain Gallbladder stones/sludge Incidental finding on CT. No evidence of acute cholecystitis. LFT's --Outpatient follow up with PCP. Aortic Dilation TTE showed LVEF 65-70%. Chest x-ray & CT chest showed an ascending aortic aneurysm. Will need follow up imaging every 6months-1 year, likely TTE Control of blood pressure as noted 08/18 TTE LVEF 65-70% proximal ascending aorta size is mildly dilated at 4.5cm 08/19 CTA 4.6 cm diameter ascending aortic aneurysm Thyromegaly with bilateral macrocalcifications, cysts Peripheral interstitial thickening of the lungs which might be consistent with usual interstitial pneumonia type pulmonary interstitial fibrosis Sludge and/or stones in the gallbladder lumen Small sliding hiatal hernia Diffuse idiopathic skeletal hyperostosis of the lower thoracic spine Subjective Date/time seen: 08/21/24 10:26 Interval history: Patient sitting up in chair. Family that is a nurse from [place] at bedside, asking for patient to be seen by Television And Radio Repairer. Patient denies chest pain, palpitations, shortness of breath, headache, or dizziness. Review of Systems Review of Systems: All systems reviewed & are unremarkable except as noted in HPI and below Exam Const: General: comfortable and no acute distress Resp: Effort & Inspection: normal respiratory effort Auscultation: clear to auscultation bilaterally Cardio: Rate: regular rate Rhythm: regular rhythm GI: GI Palp: Yes Soft to palpation Auscultation: normal bowel sounds Skin: General skin exam: no rashes or lesions noted Neuro: Other: Alert and oriented x 3, Facial weakness on the right side (forehead smoother, corner of mouth drooping, improving). Left eye s/p surgery, unable to open fully. Extrem: General: no pedal edema Psych: Affect: normal affect Objective Data Vital Signs Vital Signs: Vital Signs - 24 hr 08/20/24 12:00 08/20/24 14:20 08/20/24 16:00 Temperature 97.6 F Pulse Rate 95 91 86 Respiratory Rate 18 Blood Pressure 119/66 Pulse Oximetry 98 Oxygen Delivery 08/20/24 18:16 08/20/24 19:51 08/20/24 20:00 Temperature 97.0 F L 97.9 F Pulse Rate 91 81 Respiratory Rate 18 18 Blood Pressure 145/70 H 150/76 H Pulse Oximetry 98 100 Oxygen Delivery Room Air 08/20/24 21:08 08/20/24 23:32 08/21/24 03:38 Temperature 98.1 F 97.5 F L Pulse Rate 80 79 71 Respiratory Rate 17 16 Blood Pressure 142/68 H 145/64 H Pulse Oximetry 97 97 Oxygen Delivery 08/21/24 08:00 08/21/24 08:47 Temperature Pulse Rate 67 71 Respiratory Rate 14 Blood Pressure 138/84 Pulse Oximetry 99 Oxygen Delivery Intake/Output Intake/Output: Intake & Output 08/18/24 08/19/24 08/20/24 08/21/24 23:59 23:59 23:59 23:59 Intake Total 1270 2600 1980 460 Balance 1270 2600 1980 460 Meds/Results Medications: Active Medications Generic Name Dose Route Start Last Admin Trade Name Freq PRN Reason Stop Dose Admin Acetaminophen 650 mg 08/18/24 15:00 08/21/24 08:48 Acetaminophen 325 Mg Tablet PO 650 mg Q8H SATHISH Administration Amlodipine Besylate 10 mg 08/19/24 09:00 08/21/24 08:48 Amlodipine Besylate 10 Mg Tablet PO 10 mg DAILY SATHISH Administration Aspirin 81 mg 08/19/24 08:00 08/21/24 08:48 Aspirin 81 Mg Chewable Tablet PO 81 mg DAILY@0800 SATHISH Administration Atorvastatin Calcium 80 mg 08/18/24 09:00 08/21/24 08:48 Atorvastatin 40 Mg Tablet PO 80 mg DAILY SATHISH Administration Carvedilol 12.5 mg 08/20/24 21:00 08/21/24 08:47 Carvedilol 12.5 Mg Tablet PO 12.5 mg Q12HR SATHISH Administration Clopidogrel Bisulfate 75 mg 08/19/24 09:00 08/21/24 08:48 Clopidogrel Bisulfate 75 Mg Tablet PO 75 mg QAM SATHISH Administration Dextrose 12.5 gm 08/18/24 08:00 Dextrose 50% 25 Gm/50 Ml Syringe IV PUSH PRN PRN Hypoglycemia Protocol Enoxaparin Sodium 40 mg 08/19/24 09:00 08/21/24 08:48 Enoxaparin 40 Mg/0.4 Ml Syringe SUB-Q 40 mg DAILY SATHISH Administration Glucagon 1 mg 08/18/24 08:00 Glucagon For Inj 1 Mg Vial IM PRN PRN Hypoglycemia Protocol Glucose 15 gm 08/18/24 08:00 Glucose Oral Gel 15 Gm Of Glucse In 37.5 Gm Tube PO PRN PRN Hypoglycemia Protocol Hydrochlorothiazide 12.5 mg 08/19/24 09:00 08/19/24 08:51 Hydrochlorothiazide 12.5 Mg Capsule PO 12.5 mg DAILY SATHISH Administration Dextrose 1,000 mls @ 100 mls/hr 08/18/24 08:00 Dextrose 5% 1,000 Ml IVPB PRN PRN Hypoglycemia Protocol Meropenem 1 gm in 100 mls @ 200 mls/hr 08/20/24 15:55 08/21/24 06:16 IVPB Infused Q8HR SATHISH Infusion Insulin Aspart 10 units 08/20/24 17:00 08/21/24 08:49 Insulin Aspart (*Bkc) 100 Units/Ml SUB-Q 10 units TIDWM SATHISH Administration Insulin Aspart 3 - 6 units 08/20/24 16:40 08/21/24 08:44 Insulin Aspart (*Bkc) 100 Units/Ml SUB-Q Not Given TIDWM [facility] Protocol Insulin Glargine 25 units 08/20/24 09:00 08/21/24 08:49 Insulin Glargine (*Bkc) 100 Units/Ml SUB-Q 25 units DAILY SATHISH Administration Losartan Potassium 25 mg 08/21/24 09:00 08/21/24 08:48 Losartan Potassium 25 Mg Tablet PO 25 mg DAILY SATHISH Administration Multivitamins Therapeutic 1 tablet 08/20/24 09:00 08/21/24 08:48 Multivitamins Therapeutic Tab (*Bkc) PO 1 tablet DAILY SATHISH Administration Pantoprazole Sodium 40 mg 08/20/24 09:00 08/21/24 08:48 Pantoprazole 40 Mg Tablet PO 40 mg DAILY SATHISH Administration Perflutren Lipid Microsphere 0 ml 08/18/24 11:33 Perflutren Lipid Microspheres 1.5 Ml Vial Diluted To 10 Ml Total Volume IV PUSH 08/21/24 11:33 ONCE PRN adequate visualization Protocol Prednisone 60 mg 08/19/24 17:20 08/21/24 08:48 Prednisone 20 Mg Tablet PO 60 mg DAILY@0800 SATHISH Administration Radiology Results: ITS Impressions Head CT 08/17/24 20:34 IMPRESSION: 1. 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 I called this result to Dr. Bolanos. Head/Neck CTA 08/17/24 20:44 IMPRESSION: 1. 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 2. 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 3. 0% stenosis of the proximal internal carotid arteries relative to normal distal artery lumen diameters (NASCET criteria). Venous Doppler Study 08/17/24 22:11 IMPRESSION: 1. No deep venous thrombosis. Brain MRI 08/18/24 12:16 IMPRESSION: 1. 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 No acute intracranial process. 2. Age-related changes in the brain with mild diffuse volume loss and age-appropriate mild scattered white matter T2 hyperintensity consistent with chronic small vessel ischemic disease. 3. 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 Brain MRA 08/18/24 12:25 IMPRESSION: 1. 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 Neck MRA 08/18/24 15:03 IMPRESSION: 1. 0% stenosis of the right carotid bulb relative to normal distal artery lumen diameter (NASCET criteria). 2. 0% stenosis of the left carotid bulb relative to normal distal artery lumen diameter. 3. Right vertebral artery is dominant with diminutive left vertebral artery the distal intracranial portion of which occludes. 4. Fusiform ascending thoracic aortic aneurysm measuring up to 4.7 cm in maximal diameter. 5. Multinodular goiter. Chest X-Ray 08/19/24 16:55 IMPRESSION: Cardiomegaly Aortic atherosclerosis No active pulmonary disease Osteopenia Degenerative spurring of the thoracic spine Bilateral thyroid calcifications Chest CTA 08/19/24 16:59 IMPRESSION: 4.6 cm diameter ascending aortic aneurysm Thyromegaly with bilateral macrocalcifications, cysts Peripheral interstitial thickening of the lungs which might be consistent with usual interstitial pneumonia type pulmonary interstitial fibrosis Sludge and/or stones in the gallbladder lumen Small sliding hiatal hernia Diffuse idiopathic skeletal hyperostosis of the lower thoracic spine Labs Labs: Laboratory Results - last 24 hr 08/20/24 08/20/24 08/20/24 10:32 11:49 13:32 WBC RBC Hgb Hct MCV MCH MCHC RDW Plt Count MPV Immature Gran % (Auto) Neut % (Auto) Lymph % (Auto) Nash % (Auto) Eos % (Auto) Baso % (Auto) Lymph # (Auto) Nash # (Auto) Eos # (Auto) Baso # (Auto) Abs Immat Gran (auto) Absolute Neuts (auto) Absolute Nucleated RBC Nucleated RBC % Sodium Potassium Chloride Carbon Dioxide Anion Gap BUN Creatinine Estim Creat Clear Calc Estimated GFR Glucose POC Capillary Glucose 328 H 267 H 310 H Calcium Magnesium Total Bilirubin AST ALT Alkaline Phosphatase Total Protein Albumin 08/20/24 08/20/24 08/21/24 16:32 19:48 08:27 WBC RBC Hgb Hct MCV MCH MCHC RDW Plt Count MPV Immature Gran % (Auto) Neut % (Auto) Lymph % (Auto) Nash % (Auto) Eos % (Auto) Baso % (Auto) Lymph # (Auto) Nash # (Auto) Eos # (Auto) Baso # (Auto) Abs Immat Gran (auto) Absolute Neuts (auto) Absolute Nucleated RBC Nucleated RBC % Sodium Potassium Chloride Carbon Dioxide Anion Gap BUN Creatinine Estim Creat Clear Calc Estimated GFR Glucose POC Capillary Glucose 268 H 254 H 136 H Calcium Magnesium Total Bilirubin AST ALT Alkaline Phosphatase Total Protein Albumin 08/21/24 09:55 WBC 11.3 H RBC 4.70 Hgb 14.1 Hct 42.3 MCV 90.0 MCH 30.0 MCHC 33.3 RDW 11.9 Plt Count 252 MPV 9.7 Immature Gran % (Auto) 0.4 Neut % (Auto) 67.5 Lymph % (Auto) 26.3 Nash % (Auto) 5.1 Eos % (Auto) 0.4 Baso % (Auto) 0.3 Lymph # (Auto) 2.97 Nash # (Auto) 0.6 Eos # (Auto) 0.1 Baso # (Auto) 0.0 Abs Immat Gran (auto) 0.04 H Absolute Neuts (auto) 7.6 H Absolute Nucleated RBC 0.000 Nucleated RBC % 0.0 Sodium 136 L Potassium 3.6 Chloride 105 Carbon Dioxide 26 Anion Gap 5 BUN 21 H Creatinine 0.80 Estim Creat Clear Calc 45 Estimated GFR > 60 Glucose 192 H POC Capillary Glucose Calcium 9.5 Magnesium 1.9 Total Bilirubin 0.6 AST 31 ALT 37 H Alkaline Phosphatase 94 Total Protein 7.0 Albumin 3.8 Quality VTE Prophylaxis VTE prophylaxis: pharmacologic ordered
[2024-08-21 12:00] LABS: Glucose Point of Care 145 mg/dl (65-105)
[2024-08-21] MEDS: polyethylene glycoL 3350 17 GM POWD.PACK PO (12:22)
--- NOTE | 2024-08-21 12:25 | PHAR ---
Spoke with LISBETH Ortiz. 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 Currently on Meropenem, suggested not using Augmentin/Unasyn. Levaquin 'Intermediate', Ertapenem daily also an option
[2024-08-21 16:34] LABS: Glucose Point of Care 244 mg/dl (65-105)
[2024-08-21] MEDS: INSULIN ASPART (*BKC) 100 UNITS/ML SUB-Q (16:47)
[2024-08-21 20:50] LABS: Glucose Point of Care 334 mg/dl (65-105)
[2024-08-21] MEDS: INSULIN ASPART (*BKC) 100 UNITS/ML 8 UNITS SUB-Q (21:01)
[2024-08-21 23:05] LABS: Glucose Point of Care 226 mg/dl (65-105)
[2024-08-22] VITALS (8 sets, daily range): BP systolic 121–170; BP diastolic 62–77; PULSE 59–75; RESP 12–18; TEMP 36.3–36.9; O2SAT 97–100; BMI 33.1
[2024-08-22 05:35] LABS: Basophils Percent Auto 0.3 % (0.2-1.2); Eosinophils Percent Auto 0.2 % (0-4.4); Hemoglobin 13.5 g/dL (12.0-15.0); Immature Granulocyte Absolute 0.05 K/mm3 (0.00-0.031); Immature Granulocyte Percent A 0.5 % (0-0.5); Lymphocytes Percent Auto 25.1 % (18.3-44.2); Mean Corpuscular HGB Conc 33.8 g/dl (32-36); Mean Corpuscular Volume 88.9 fl (80-100); Mean Platelet Volume 9.6 fl (7.4-10.4); Monocytes Absolute Auto 0.8 K/mm3 (0.1-0.6); Monocytes Percent Auto 7.1 % (2.6-8.5); Neutrophils Absolute Auto 7.2 K/mm3 (1.3-6.7); Neutrophils Percent Auto 66.8 % (45.5-73.1); Platelet Count Result 242 k/mm3 (150-375); Red Cell Distribution Width 12.1 % (11.5-14.5); White Blood Count 10.8 K/mm3 (4.5-10.0)
[2024-08-22] MEDS: MEROPENEM 1 GM/NS 100 ML 1 GM/100 ML BAG IVPB ×3 (05:35→21:40)
[2024-08-22 05:43] LABS: Alanine Aminotransferase 45 U/L (6-35); Albumin Level 3.5 g/dL (3.5-5.1); Alkaline Phosphatase 85 U/L (38-126); Anion Gap 2 mmol/L (4-12); Aspartate Amino Transferase 34 U/L (14-36); Bilirubin,Total 0.6 mg/dL (0.2-1.3); Blood Urea Nitrogen 22 mg/dL (7-17); Calcium 9.8 mg/dL (8.4-10.2); Carbon Dioxide 27 mmol/L (22-30); Chloride 109 mmol/L (98-107); Estimated CRCL calculation 51 ml/min; Estimated Glomerular Filt Rate > 60; Glucose 111 mg/dL (65-110); Potassium 3.5 mmol/L (3.4-5.0); Sodium 138 mmol/L (137-145)
[2024-08-22 07:55] LABS: Glucose Point of Care 95 mg/dl (65-105)
--- NOTE | 2024-08-22 08:33 | P.CONCA_ITS ---
Assessment and Plan Assessment and plan (1) Hypertension, uncontrolled: Code(s): I10 - Essential (primary) hypertension Status: Acute Assessment and Plan: Generally not well controlled per daughter. Agree with previous adjustments made by hospitalist. Will further adjust by shifting from losartan to lisinopril. Will start at 10mg daily. Up titrate as necessary. (2) Dilated aortic root: Code(s): I77.810 - Thoracic aortic ectasia Status: Acute Assessment and Plan: 4.5cm by echo and chest CT. Blood pressure control. Outpatient surveillance and follow up (3) Chest pain: Code(s): R07.9 - Chest pain, unspecified Status: Acute Assessment and Plan: Atypical chest pain. Will check a troponin and repeat EKG. Likely will not pursue any additional cardiac workup in the hospital but certainly could consider outpatient stress test or CCTA. History of Present Illness History of Present Illness Consult date/time: 08/22/24 08:33 Requesting physician: Diana Masters APRN Consult reason: chest pain, hypertension and Other (aortic aneurysm) Reason For Visit: Right sided facial droop Narrative: Roseann Tracey is an 84 year old female with diabetes, CVA one year ago, and hypertension. She is admitted to the hospital because of right sided facial droop. Neurology has seen the patient and feel her facial droop is because of Cardoza's Palsy. Cardiology is consulted for hypertension, chest pain, and finding of mild aortic dilation on echo and CT. The patient is Bel[place]ian speaking, so wire mill operator services were utilized. She states she has left sided chest discomfort (sharp pain and pressure) intermittently. Can occur either while at rest or with activity. She feels the discomfort now and the discomfort is sometimes reproducible by palpation. She is comfortable at the time of my evaluation and does not appear to be in any distress. Review of Systems 2 Review of Systems: All systems reviewed & are unremarkable except as noted in HPI and below PMFSH Past Medical History Medical History Occlusion of left vertebral artery History of cerebrovascular disease Right-sided Cardoza's palsy History of hyperlipidemia History of hypertension History of diabetes mellitus Social History Social History Smoking status: Never smoker Alcohol intake: never Substance use: never Do You Feel Safe in your Home?: Yes Lack of Transportation: No Lack of Food: Never True Current Housing: I Have Housing Concerned About Future Housing: No Difficulty Paying Gas/Electric Bills: No Difficulty Paying for Meds: No Currently Unemployed: No Education: Never Attended/Kindergarten Only Difficulty w/ Childcare or Family Care: No Spiritual care concerns: No Meds Home Medications and Allergies Home Medications ?Medication ?Instructions ?Recorded ?Confirmed ?Type amlodipine 10 mg tablet 10 mg PO DAILY 08/18/24 08/18/24 History atorvastatin 40 mg tablet 40 mg PO HS 08/18/24 08/18/24 History cholecalciferol (vitamin D3) 1,250 1,250 mcg PO WEEKLY 08/18/24 08/18/24 History mcg (50,000 unit) capsule insulin glargine 100 unit/mL (3 20 unit subcut DAILY 08/18/24 08/18/24 History mL) subcutaneous pen (Lantus Solostar U-100 Insulin) losartan 100 1 tablet PO DAILY 08/18/24 08/18/24 History mg-hydrochlorothiazide 12.5 mg tablet multivitamin with folic acid 400 1 tablet PO DAILY 08/18/24 08/18/24 History mcg tablet (Tab-A-Rhona) pantoprazole 40 mg tablet,delayed 40 mg PO DAILY 08/18/24 08/18/24 History release Allergies Allergy/AdvReac Type Severity Reaction Status Date / Time Penicillins Allergy Severe Anaphylaxis Verified 08/18/24 00:47 Vital Signs Vital Signs - 24 hr 08/21/24 08:47 08/21/24 12:00 08/21/24 16:00 Temperature Pulse Rate 71 62 66 Respiratory Rate 12 12 Blood Pressure 118/59 L 135/59 L Pulse Oximetry 99 99 Oxygen Delivery 08/21/24 20:00 08/21/24 20:00 08/21/24 21:01 Temperature 36.5 C Pulse Rate 76 74 Respiratory Rate 20 Blood Pressure 144/93 H Pulse Oximetry 100 Oxygen Delivery Room Air 08/22/24 00:00 08/22/24 03:48 08/22/24 07:54 Temperature 36.8 C 36.3 C L 36.5 C Pulse Rate 75 63 68 Respiratory Rate 18 18 12 Blood Pressure 142/66 H 149/62 H 170/77 H Pulse Oximetry 100 98 99 Oxygen Delivery Exam 2 Const: General: comfortable, no acute distress, alert and awake O rientation/consciousness: patient oriented x3 HENMT: Head: normal to inspection Other: right sided mouth droop Eyes: General: appearance normal, both eyes and all related structures P upils: Equal, round and reactive pupils present Neck: Neck: normal visual inspection, supple and no JVD Chest: Other: reproducible chest wall pain to palpation Resp: Effort & Inspection: normal respiratory effort Auscultation: clear to auscultation bilaterally Cardio: Rate: regular rate Rhythm: regular rhythm Heart sounds: S1 normal heart sound present, S2 normal heart sound present and no murmurs GI: Auscultation: normal bowel sounds Skin: General skin exam: normal color Neuro: General: patient oriented x3 Speech: No normal speech Extrem: General: normal to inspection Psych: Appearance: grossly normal Mental Status: mental status grossly normal Results Labs and Meds 08/22/24 05:07 08/22/24 05:07 Lab results: Cardiac Enzymes 08/21/24 08/22/24 Range/Units 09:55 05:07 AST 31 34 (14-36) U/L CBC 08/21/24 08/22/24 Range/Units 09:55 05:07 WBC 11.3 H 10.8 H (4.5-10.0) K/mm3 RBC 4.70 4.50 (4.2-5.4) M/mm3 Hgb 14.1 13.5 (12.0-15.0) g/dL Hct 42.3 40.0 (37.0-47.0) % Plt Count 252 242 (150-375) k/mm3 Lymph # (Auto) 2.97 2.70 (0.9-3.2) K/mm3 Stearns # (Auto) 0.6 0.8 H (0.1-0.6) K/mm3 Eos # (Auto) 0.1 0.0 (0-0.3) K/mm3 Baso # (Auto) 0.0 0.0 (0.0-0.1) K/mm3 Comprehensive Metabolic Panel 08/21/24 08/22/24 Range/Units 09:55 05:07 Sodium 136 L 138 (137-145) mmol/L Potassium 3.6 3.5 (3.4-5.0) mmol/L Chloride 105 109 H (98-107) mmol/L Carbon Dioxide 26 27 (22-30) mmol/L BUN 21 H 22 H (7-17) mg/dL Creatinine 0.80 0.70 (0.7-1.0) mg/dL Glucose 192 H 111 H (65-110) mg/dL Calcium 9.5 9.8 (8.4-10.2) mg/dL AST 31 34 (14-36) U/L ALT 37 H 45 H (6-35) U/L Alkaline Phosphatase 94 85 (38-126) U/L Total Protein 7.0 7.0 (6.3-8.2) g/dL Albumin 3.8 3.5 (3.5-5.1) g/dL Intake and Output 08/21/24 08/22/24 08/22/24 23:59 07:59 15:59 Intake Total 2440 400 Balance 2440 400 Intake: IV 200 100 Meropenem 1 gm/Ns 100 ml 1 gm 200 100 In 100 ml @ 200 mls/hr IVPB Q8HR [facility] Rx#:[id number] Oral 2240 300 Other: # Unmeasured Voids 8 1 Number of Bowel Movements Today 1 1
[2024-08-22] MEDS: carvediloL 12.5 MG TABLET PO ×2 (08:37→21:40)
[2024-08-22] MEDS: amLODIPine BESYLATE 10 MG TABLET PO (08:38)
[2024-08-22] MEDS: MULTIVITAMINS THERAPEUTIC TAB (*BKC) 1 TABLET PO (08:38)
[2024-08-22] MEDS: PANTOPRAZOLE 40 MG TABLET PO (08:38)
[2024-08-22] MEDS: ASPIRIN 81 MG CHEWABLE TABLET PO (08:38)
[2024-08-22] MEDS: ACETAMINOPHEN 325 MG TABLET 650 MG PO ×2 (08:38→14:34)
[2024-08-22] MEDS: CLOPIDOGREL BISULFATE 75 MG TABLET PO (08:38)
[2024-08-22] MEDS: ATORVASTATIN 40 MG TABLET 80 MG PO (08:38)
[2024-08-22] MEDS: polyethylene glycoL 3350 17 GM POWD.PACK PO (08:38)
[2024-08-22] MEDS: predniSONE 40 MG, predniSONE 10 MG 50 MG PO (08:38)
[2024-08-22] MEDS: ENOXAPARIN 40 MG/0.4 ML SYRINGE SUB-Q (08:38)
[2024-08-22] MEDS: INSULIN GLARGINE (*BKC) 100 UNITS/ML 25 UNITS SUB-Q (08:40)
[2024-08-22] MEDS: lisinopriL 10 MG TABLET PO (08:43)
--- NOTE | 2024-08-22 09:52 | ECG_ITS ---
Test Date: 2024-08-22 10:38:04 Measurements Intervals [place] Rate: 61 P: -1 AL: 191 QRS: -14 QRSD: 83 T: 2 QT: 410 QTc: 413 Interpretive Statements SINUS RHYTHM VOLTAGE CRITERIA FOR LVH [MEETS CRITERIA IN ONE OF: R(aVL), S(V1), R(V5), R(V5/V6)+S(V1)] POSSIBLE ANTERIOR MYOCARDIAL INFARCTION , OF INDETERMINATE AGE [30 ms Q WAVE IN V3/V4, OR R < 0.2 mV IN V4] INFERIOR MYOCARDIAL INFARCTION , PROBABLY OLD [40+ ms Q WAVE AND/OR ST/T ABNORMALITY IN II/aVF] Compared to ECG 08/17/2024 22:35:16 Myocardial infarct finding now present First degree AV block no longer present T-wave abnormality no longer present Electronically Signed On 08-22-2024 14:50:48 TITRATOR by Meg Sorensen M.D.
[2024-08-22 10:44] LABS: Troponin I < 0.012 ng/mL (0.000-0.034)
--- NOTE | 2024-08-22 11:36 | P.PNIM_ITS ---
Subjective Date/time seen: 08/22/24 11:36 Review of Systems Review of Systems: All systems reviewed & are unremarkable except as noted in HPI and below Objective Data Vital Signs Vital Signs: Vital Signs - 24 hr 08/21/24 12:00 08/21/24 16:00 08/21/24 20:00 Temperature 97.7 F Pulse Rate 62 66 76 Respiratory Rate 12 12 20 Blood Pressure 118/59 L 135/59 L 144/93 H Pulse Oximetry 99 99 100 Oxygen Delivery 08/21/24 20:00 08/21/24 21:01 08/22/24 00:00 Temperature 98.2 F Pulse Rate 74 75 Respiratory Rate 18 Blood Pressure 142/66 H Pulse Oximetry 100 Oxygen Delivery Room Air 08/22/24 03:48 08/22/24 07:54 08/22/24 08:30 Temperature 97.4 F L 97.7 F Pulse Rate 63 68 Respiratory Rate 18 12 Blood Pressure 149/62 H 170/77 H Pulse Oximetry 98 99 Oxygen Delivery Room Air 08/22/24 08:37 Temperature Pulse Rate 68 Respiratory Rate Blood Pressure Pulse Oximetry Oxygen Delivery Intake/Output Intake/Output: Intake & Output 08/19/24 08/20/24 08/21/24 08/22/24 23:59 23:59 23:59 23:59 Intake Total 2600 1979 3020 640 Balance 2600 1979 3020 640 Meds/Results Medications: Active Medications Generic Name Dose Route Start Last Admin Trade Name Freq PRN Reason Stop Dose Admin Acetaminophen 650 mg 08/18/24 15:00 08/22/24 08:38 Acetaminophen 325 Mg Tablet PO 650 mg Q8H SATHISH Administration Amlodipine Besylate 10 mg 08/19/24 09:00 08/22/24 08:38 Amlodipine Besylate 10 Mg Tablet PO 10 mg DAILY SATHISH Administration Aspirin 81 mg 08/19/24 08:00 08/22/24 08:38 Aspirin 81 Mg Chewable Tablet PO 81 mg DAILY@0800 SATHISH Administration Atorvastatin Calcium 80 mg 08/18/24 09:00 08/22/24 08:38 Atorvastatin 40 Mg Tablet PO 80 mg DAILY SATHISH Administration Carvedilol 12.5 mg 08/20/24 21:00 08/22/24 08:37 Carvedilol 12.5 Mg Tablet PO 12.5 mg Q12HR SATHISH Administration Clopidogrel Bisulfate 75 mg 08/19/24 09:00 08/22/24 08:38 Clopidogrel Bisulfate 75 Mg Tablet PO 75 mg QAM SATHISH Administration Dextrose 12.5 gm 08/18/24 08:00 Dextrose 50% 25 Gm/50 Ml Syringe IV PUSH PRN PRN Hypoglycemia Protocol Enoxaparin Sodium 40 mg 08/19/24 09:00 08/22/24 08:38 Enoxaparin 40 Mg/0.4 Ml Syringe SUB-Q 40 mg DAILY SATHISH Administration Glucagon 1 mg 08/18/24 08:00 Glucagon For Inj 1 Mg Vial IM PRN PRN Hypoglycemia Protocol Glucose 15 gm 08/18/24 08:00 Glucose Oral Gel 15 Gm Of Glucse In 37.5 Gm Tube PO PRN PRN Hypoglycemia Protocol Hydrochlorothiazide 12.5 mg 08/19/24 09:00 08/19/24 08:51 Hydrochlorothiazide 12.5 Mg Capsule PO 12.5 mg DAILY SATHISH Administration Dextrose 1,000 mls @ 100 mls/hr 08/18/24 08:00 Dextrose 5% 1,000 Ml IVPB PRN PRN Hypoglycemia Protocol Meropenem 1 gm in 100 mls @ 200 mls/hr 08/20/24 15:55 08/22/24 06:05 IVPB Infused Q8HR SATHISH Infusion Insulin Aspart 10 units 08/20/24 17:00 08/22/24 08:37 Insulin Aspart (*Bkc) 100 Units/Ml SUB-Q Not Given [facility] Insulin Aspart 3 - 6 units 08/20/24 16:40 08/22/24 08:40 Insulin Aspart (*Bkc) 100 Units/Ml SUB-Q Not Given [facility] Protocol Insulin Glargine 25 units 08/20/24 09:00 08/22/24 08:40 Insulin Glargine (*Bkc) 100 Units/Ml SUB-Q 25 units DAILY SATHISH Administration Lisinopril 10 mg 08/22/24 09:00 08/22/24 08:43 Lisinopril 10 Mg Tablet PO 10 mg DAILY SATHISH Administration Multivitamins Therapeutic 1 tablet 08/20/24 09:00 08/22/24 08:38 Multivitamins Therapeutic Tab (*Bkc) PO 1 tablet DAILY SATHISH Administration Pantoprazole Sodium 40 mg 08/20/24 09:00 08/22/24 08:38 Pantoprazole 40 Mg Tablet PO 40 mg DAILY SATHISH Administration Polyethylene Glycol 17 gm 08/21/24 10:45 08/22/24 08:38 Polyethylene Glycol 3350 17 Gm Powd.Pack PO 17 gm QAM SATHISH Administration Prednisone 40 mg/ Prednisone 50 mg 08/22/24 08:00 08/22/24 08:38 10 mg PO 50 mg DAILY@0800 SATHISH Administration Radiology Results: ITS Impressions Head CT 08/17/24 20:34 IMPRESSION: 1. 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 I called this result to Dr. Bolanos. Head/Neck CTA 08/17/24 20:44 IMPRESSION: 1. 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 2. 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 3. 0% stenosis of the proximal internal carotid arteries relative to normal distal artery lumen diameters (NASCET criteria). Venous Doppler Study 08/17/24 22:11 IMPRESSION: 1. No deep venous thrombosis. Brain MRI 08/18/24 12:16 IMPRESSION: 1. 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 No acute intracranial process. 2. Age-related changes in the brain with mild diffuse volume loss and age- appropriate mild scattered white matter T2 hyperintensity consistent with chronic small vessel ischemic disease. 3. 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 Brain MRA 08/18/24 12:25 IMPRESSION: 1. 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 Neck MRA 08/18/24 15:03 IMPRESSION: 1. 0% stenosis of the right carotid bulb relative to normal distal artery lumen diameter (NASCET criteria). 2. 0% stenosis of the left carotid bulb relative to normal distal artery lumen diameter. 3. Right vertebral artery is dominant with diminutive left vertebral artery the distal intracranial portion of which occludes. 4. Fusiform ascending thoracic aortic aneurysm measuring up to 4.7 cm in maximal diameter. 5. Multinodular goiter. Chest X-Ray 08/19/24 16:55 IMPRESSION: Cardiomegaly Aortic atherosclerosis No active pulmonary disease Osteopenia Degenerative spurring of the thoracic spine Bilateral thyroid calcifications Chest CTA 08/19/24 16:59 IMPRESSION: 4.6 cm diameter ascending aortic aneurysm Thyromegaly with bilateral macrocalcifications, cysts Peripheral interstitial thickening of the lungs which might be consistent with usual interstitial pneumonia type pulmonary interstitial fibrosis Sludge and/or stones in the gallbladder lumen Small sliding hiatal hernia Diffuse idiopathic skeletal hyperostosis of the lower thoracic spine Labs Labs: Laboratory Results - last 24 hr 08/21/24 08/21/24 08/21/24 11:54 16:31 20:18 WBC RBC Hgb Hct MCV MCH MCHC RDW Plt Count MPV Immature Gran % (Auto) Neut % (Auto) Lymph % (Auto) [place] % (Auto) Eos % (Auto) Baso % (Auto) Lymph # (Auto) [place] # (Auto) Eos # (Auto) Baso # (Auto) Abs Immat Gran (auto) Absolute Neuts (auto) Absolute Nucleated RBC Nucleated RBC % Sodium Potassium Chloride Carbon Dioxide Anion Gap BUN Creatinine Estim Creat Clear Calc Estimated GFR Glucose POC Capillary Glucose 145 H 244 H 334 H Calcium Total Bilirubin AST ALT Alkaline Phosphatase Troponin I Total Protein Albumin 08/21/24 08/22/24 08/22/24 23:00 05:07 07:46 WBC 10.8 H RBC 4.50 Hgb 13.5 Hct 40.0 MCV 88.9 MCH 30.0 MCHC 33.8 RDW 12.1 Plt Count 242 MPV 9.6 Immature Gran % (Auto) 0.5 Neut % (Auto) 66.8 Lymph % (Auto) 25.1 [place] % (Auto) 7.1 Eos % (Auto) 0.2 Baso % (Auto) 0.3 Lymph # (Auto) 2.70 [place] # (Auto) 0.8 H Eos # (Auto) 0.0 Baso # (Auto) 0.0 Abs Immat Gran (auto) 0.05 H Absolute Neuts (auto) 7.2 H Absolute Nucleated RBC 0.000 Nucleated RBC % 0.0 Sodium 138 Potassium 3.5 Chloride 109 H Carbon Dioxide 27 Anion Gap 2 L BUN 22 H Creatinine 0.70 Estim Creat Clear Calc 51 Estimated GFR > 60 Glucose 111 H POC Capillary Glucose 226 H 95 Calcium 9.8 Total Bilirubin 0.6 AST 34 ALT 45 H Alkaline Phosphatase 85 Troponin I Total Protein 7.0 Albumin 3.5 08/22/24 10:16 WBC RBC Hgb Hct MCV MCH MCHC RDW Plt Count MPV Immature Gran % (Auto) Neut % (Auto) Lymph % (Auto) [place] % (Auto) Eos % (Auto) Baso % (Auto) Lymph # (Auto) [place] # (Auto) Eos # (Auto) Baso # (Auto) Abs Immat Gran (auto) Absolute Neuts (auto) Absolute Nucleated RBC Nucleated RBC % Sodium Potassium Chloride Carbon Dioxide Anion Gap BUN Creatinine Estim Creat Clear Calc Estimated GFR Glucose POC Capillary Glucose Calcium Total Bilirubin AST ALT Alkaline Phosphatase Troponin I < 0.012 Total Protein Albumin
[2024-08-22 11:50] LABS: Glucose Point of Care 173 mg/dl (65-105)
[2024-08-22] MEDS: EUCERIN CREAM 120 GM JAR 1 APPLIC TOPICAL (12:11)
[2024-08-22] MEDS: INSULIN ASPART (*BKC) 100 UNITS/ML 10 UNITS SUB-Q ×2 (12:12→17:40)
--- NOTE | 2024-08-22 14:24 | P.DS_ITS ---
DS: Admitting Diagnosis Discharge Date 08/22/2024 Admitting Diagnosis left facial droop, high blood sugar, hypertension DS: Discharge Diagnosis Discharge Diagnosis (1) DMII (diabetes mellitus, type 2): Code(s): E11.9 - Type 2 diabetes mellitus without complications Status: Acute (2) Dental infection: Code(s): K04.7 - Periapical abscess without sinus Status: Acute (3) HTN (hypertension): Code(s): I10 - Essential (primary) hypertension Status: Acute (4) Aortic aneurysm: Code(s): I71.9 - Aortic aneurysm of unspecified site, without rupture Status: Acute (5) E-coli UTI: Code(s): N39.0 - Urinary tract infection, site not specified; B96.20 - Unspecified Escherichia coli [E. coli] as the cause of diseases classified elsewhere Status: Acute (6) Right-sided Cardoza's palsy: Code(s): G51.0 - Cardoza's palsy Status: Acute DS: Summary Time Spent with Patient Time attestation: Total time spent providing and/or coordinating discharge services: DS: Data Data Completed and Pending Labs on day of discharge: Labs from last 24 hours 08/22/24 08/22/24 08/22/24 11:40 10:16 07:46 WBC RBC Hgb Hct MCV MCH MCHC RDW Plt Count MPV Immature Gran % (Auto) Neut % (Auto) Lymph % (Auto) [place] % (Auto) Eos % (Auto) Baso % (Auto) Lymph # (Auto) [place] # (Auto) Eos # (Auto) Baso # (Auto) Abs Immat Gran (auto) Absolute Neuts (auto) Absolute Nucleated RBC Nucleated RBC % Sodium Potassium Chloride Carbon Dioxide Anion Gap BUN Creatinine Estim Creat Clear Calc Estimated GFR Glucose POC Capillary Glucose 173 H 95 Calcium Total Bilirubin AST ALT Alkaline Phosphatase Troponin I < 0.012 Total Protein Albumin 08/22/24 08/21/24 08/21/24 05:07 23:00 20:18 WBC 10.8 H RBC 4.50 Hgb 13.5 Hct 40.0 MCV 88.9 MCH 30.0 MCHC 33.8 RDW 12.1 Plt Count 242 MPV 9.6 Immature Gran % (Auto) 0.5 Neut % (Auto) 66.8 Lymph % (Auto) 25.1 [place] % (Auto) 7.1 Eos % (Auto) 0.2 Baso % (Auto) 0.3 Lymph # (Auto) 2.70 [place] # (Auto) 0.8 H Eos # (Auto) 0.0 Baso # (Auto) 0.0 Abs Immat Gran (auto) 0.05 H Absolute Neuts (auto) 7.2 H Absolute Nucleated RBC 0.000 Nucleated RBC % 0.0 Sodium 138 Potassium 3.5 Chloride 109 H Carbon Dioxide 27 Anion Gap 2 L BUN 22 H Creatinine 0.70 Estim Creat Clear Calc 51 Estimated GFR > 60 Glucose 111 H POC Capillary Glucose 226 H 334 H Calcium 9.8 Total Bilirubin 0.6 AST 34 ALT 45 H Alkaline Phosphatase 85 Troponin I Total Protein 7.0 Albumin 3.5 08/21/24 16:31 WBC RBC Hgb Hct MCV MCH MCHC RDW Plt Count MPV Immature Gran % (Auto) Neut % (Auto) Lymph % (Auto) [place] % (Auto) Eos % (Auto) Baso % (Auto) Lymph # (Auto) [place] # (Auto) Eos # (Auto) Baso # (Auto) Abs Immat Gran (auto) Absolute Neuts (auto) Absolute Nucleated RBC Nucleated RBC % Sodium Potassium Chloride Carbon Dioxide Anion Gap BUN Creatinine Estim Creat Clear Calc Estimated GFR Glucose POC Capillary Glucose 244 H Calcium Total Bilirubin AST ALT Alkaline Phosphatase Troponin I Total Protein Albumin Discharge Plan Discharge Attending physician on discharge: Jasmin Saucedo Consulting providers: Wilberto Gonzalez; Alivia Dyer Discharging Clinician: Jasmin Saucedo Patient Disposition: Home, Self-Care Activity: december shower Diet: diabetic Patient Instructions: Antibiotic Form Patient Language: Luxembourgish Stand Alone Forms: General Discharge Information Follow-up/Referrals: Brendan Chiang MD [Physician] - Call for Appointment PHYSICIAN NOT ON STAFF,NONSTAFF [Primary Care Provider] - (Follow up in 1-2 weeks ) Discharge Medications: New clopidogrel 75 mg Tablet 75 mg PO QAM Qty: 90 0RF metformin 500 mg tablet extended release 24 hr 1,000 mg PO DAILY Qty: 100 0RF Rx Instructions: Take 1 tablet (500mg) daily for a week, and then increase to 2 tabs (1000mg) daily losartan 25 mg tablet 25 mg PO DAILY Qty: 30 0RF aspirin [Children's Aspirin] 81 mg Tablet,Chewable 81 mg PO DAILY@0800 Qty: 90 0RF acetaminophen 325 mg Tablet 650 mg PO Q8H PRN (Reason: Pain, Mild) Qty: 90 0RF prednisone 20 mg Tablet 60 mg PO DAILY@0800 4 Days Qty: 12 0RF nitrofurantoin monohyd/m-cryst [Macrobid] 100 mg Capsule 100 mg PO Q12HR Qty: 12 0RF atorvastatin 80 mg tablet 80 mg PO HS Qty: 90 0RF insulin aspart U-100 [Novolog FlexPen U-100 Insulin] 100 unit/mL (3 mL) insulin pen 10 unit subcut TID Qty: 15 3RF Rx Instructions: Check blood sugar and give 10 units if blood sugar is 100-200, 13 units if 201-300. 16 units if 301 or above insulin glargine [Lantus Solostar U-100 Insulin] 100 unit/mL (3 mL) insulin pen 35 unit subcut QAM Qty: 15 11RF Rx Instructions: 30 units daily for 4 more days, 08/24, then decrease to 20 units daily on 08/25. Hold if blood sugar is less than 80 and reduce dose by 10 units. carvedilol 6.25 mg tablet 6.25 mg PO BID Qty: 60 3RF Rx Instructions: must administer with a meal/food Continued cholecalciferol (vitamin D3) 1,250 mcg (50,000 unit) capsule 1,250 mcg PO WEEKLY Patient Comments: On pantoprazole 40 mg tablet,delayed release (DR/EC) 40 mg PO DAILY multivitamin with folic acid [Tab-A-Rhona] 400 mcg tablet 1 tablet PO DAILY amlodipine 10 mg tablet 10 mg PO DAILY 365 Days Qty: 90 0RF Discontinued atorvastatin 40 mg tablet 40 mg PO HS losartan-hydrochlorothiazide 100-12.5 mg tablet 1 tablet PO DAILY insulin glargine [Lantus Solostar U-100 Insulin] 100 unit/mL (3 mL) insulin pen 20 unit SUBCUT DAILY Date of admission: 08/17/24 22:33 Primary Care Provider: PHYSICIAN NOT ON STAFF,NONSTAFF Admitting Provider: Lori Wilson Attending physician on admission: Jasmin Saucedo Condition: Serious Hospitalist MIPS Heart Failure (Exclusion) Patient has history of Heart Transplant or Left Ventricular Assistive Device?: No IF YES, STOP HERE Heart Failure (Qualifier) Patient has current or prior documentation of LVEF less than or equal to 40%, or mod/servere depressed LVSF?: No IF NO, STOP HERE
--- NOTE | 2024-08-22 14:43 | PM.IMPN ---
Progress Note: A&P Assessment and Plan (1) DMII (diabetes mellitus, type 2): Code(s): E11.9 - Type 2 diabetes mellitus without complications Status: Acute Assessment and Plan: Uncontrolled Diabetes, hyperglycemia HgbA1c 11.2% Blood sugars more elevated in the setting of steroids Lantus 18 08/19, increased to 25units 08/20 with steroids Lispro 4<6<10 TID. Moderate dose [employer] and clinical staff educator consulted. Discussed managing blood sugars while on steroids but will likely be admitted for IV antibiotics for UTI to complete steroids, last day 08/18-08/26 Discussed with family and agreeable to starting metformin for discharge (2) Dental infection: Code(s): K04.7 - Periapical abscess without sinus Status: Acute Assessment and Plan: Right facial/dental pain. s/p IV & PO clinda --On meropenem for UTI --Follow up with dentist (3) HTN (hypertension): Code(s): I10 - Essential (primary) hypertension Status: Acute (4) Aortic aneurysm: Code(s): I71.9 - Aortic aneurysm of unspecified site, without rupture Status: Acute Assessment and Plan: TTE showed LVEF 65-70%. Chest x-ray & CT chest showed an ascending aortic aneurysm. 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 coli] as the cause of diseases classified elsewhere Status: Acute Assessment and Plan: No flank pain but now reporting dysuria. Urine culture growing resistant e coli Report of anaphylaxis in chart from [facility] but discussed with daughter at bedside and may have been a rash and not swelling or shortness of breath. But was in [place] and she has no way to verify and doesn't think her mom will know. Urine culture with resistance to multiple antibiotics. --Meropenem 1 gm IVPB q8. Patient to get a one time dose of Gentamycin IV in the morning then may be discharged. --Monitor for rash or other symptoms. 1. Escherichia Coli M.I.C. RX --------- --- Amoxicillin/Clavulanate <=2 S Ampicillin/Sulbactam 4 S Cefazolin >=64 R For uncomplicated UTI caused by E. coli, K. pneumoniae or P. mirabilis: Cefazolin is susceptible if DENIA <32 mcg/mL and predicts susceptible to the oral agents cefaclor, cefdinir, cefpodoxime, cefprozil, cefuroxime, cephalexin and loracarbef. 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 Prior stroke likely an incidental finding per neurology No weakness to extremities. Weakness to right side of face includes forehead. Right sided facial weakness. Neurology evaluated, appreciate recommendations Started steroids with improving weakness. Facial pain resolved and no evidence of Garcia Aponte syndrome so deferred antiviral medications Speech, PT, and OT were consulted, planning home with family. No modifications to diet, was given exercises for facial strengthening. --Continued aspirin and started plavix, increased atorvastatin Plan Hospital Course as of 08/20: Roseann Capellan is an 84 year old female hx diabetes, uncontrolled, HTN, CVA, who came for evaluation of left facial weakness, admitted for new facial weakness, diagnosed with Cardoza's palsy and started on steroids. 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 Prior stroke likely an incidental finding per neurology No weakness to extremities. Weakness to right side of face includes forehead. Right sided facial weakness. Neurology evaluated and recommended steroids Speech, PT, and OT were consulted. -- Continued aspirin and started plavix, increased atorvastatin HTN, uncontrolled Reports frequently elevated blood pressures in the 190's at home. Headache intermittently, no chest pain. Home meds: amlodipine 10mg daily, losartan 100/hctz 12.5mg daily. Adjusted meds for better blood pressure control. Continued amlodipine. Started coreg, seemed to have better control, and reduced losartan/hctz Uncontrolled Diabetes, hyperglycemia HgbA1c 11 Blood sugars elevated. Home meds: Lantus 20 units daily. Changed to basal bolus during admission Increased Lantus and mealtime insulin with prednisone. Discussed diet modifications and consulted clinical staff educator and iphone developer Discussed starting metformin for discharge. Dental pain Right facial/dental pain. s/p IV clinda, continued but then continued meropenem for UTI --Follow up with dentist UTI Urine culture growing ecoli resistant to multiple antibiotics. Stopped nitrofurantoin. Started meropenem since having dysuria. No flank pain Gallbladder stones/sludge Incidental finding on CT. No evidence of acute cholecystitis. LFT's --Outpatient follow up with PCP. Aortic Dilation TTE showed LVEF 65-70%. Chest x-ray & CT chest showed an ascending aortic aneurysm. Will need follow up imaging every 6months-1 year, likely TTE Control of blood pressure as noted 08/18 TTE LVEF 65-70% proximal ascending aorta size is mildly dilated at 4.5cm 08/19 CTA 4.6 cm diameter ascending aortic aneurysm Thyromegaly with bilateral macrocalcifications, cysts Peripheral interstitial thickening of the lungs which might be consistent with usual interstitial pneumonia type pulmonary interstitial fibrosis Sludge and/or stones in the gallbladder lumen Small sliding hiatal hernia Diffuse idiopathic skeletal hyperostosis of the lower thoracic spine Subjective Date/time seen: 08/22/24 14:43 Interval history: Patient sitting up in chair with family at bedside. Patient reports a headache that is a 5 , frequent, and aching. Patient denies shortness of breath, nausea, vomiting, or dizziness. Patient reports that her feet ache at times and are dry between toes. Review of Systems Review of Systems: All systems reviewed & are unremarkable except as noted in HPI and below Exam Const: General: no acute distress and uncomfortable Resp: Effort & Inspection: normal respiratory effort Auscultation: clear to auscultation bilaterally Cardio: Rate: regular rate Rhythm: regular rhythm GI: GI Palp: Yes Soft to palpation Auscultation: normal bowel sounds Skin: General skin exam: no rashes or lesions noted Neuro: Other: Alert and oriented x 3, Facial weakness on the right side (forehead smoother, corner of mouth drooping, improving). Left eye s/p surgery, unable to open fully. Extrem: General: no pedal edema Psych: Mental Status: mental status grossly normal Affect: normal affect Objective Data Vital Signs Vital Signs: Vital Signs - 24 hr 08/21/24 16:00 08/21/24 20:00 08/21/24 20:00 Temperature 97.7 F Pulse Rate 66 76 Respiratory Rate 12 20 Blood Pressure 135/59 L 144/93 H Pulse Oximetry 99 100 Oxygen Delivery Room Air 08/21/24 21:01 08/22/24 00:00 08/22/24 03:48 Temperature 98.2 F 97.4 F L Pulse Rate 74 75 63 Respiratory Rate 18 18 Blood Pressure 142/66 H 149/62 H Pulse Oximetry 100 98 Oxygen Delivery 08/22/24 07:54 08/22/24 08:30 08/22/24 08:37 Temperature 97.7 F Pulse Rate 68 68 Respiratory Rate 12 Blood Pressure 170/77 H Pulse Oximetry 99 Oxygen Delivery Room Air 08/22/24 11:53 Temperature Pulse Rate 59 L Respiratory Rate 12 Blood Pressure 121/69 Pulse Oximetry 100 Oxygen Delivery Intake/Output Intake/Output: Intake & Output 08/19/24 08/20/24 08/21/24 08/22/24 23:59 23:59 23:59 23:59 Intake Total 2600 1979 3020 880 Balance 2600 1979 3020 880 Meds/Results Medications: Active Medications Generic Name Dose Route Start Last Admin Trade Name Freq PRN Reason Stop Dose Admin Acetaminophen 650 mg 08/18/24 15:00 08/22/24 14:34 Acetaminophen 325 Mg Tablet PO 650 mg Q8H SATHISH Administration Amlodipine Besylate 10 mg 08/19/24 09:00 08/22/24 08:38 Amlodipine Besylate 10 Mg Tablet PO 10 mg DAILY SATHISH Administration Aspirin 81 mg 08/19/24 08:00 08/22/24 08:38 Aspirin 81 Mg Chewable Tablet PO 81 mg DAILY@0800 SATHISH Administration Atorvastatin Calcium 80 mg 08/18/24 09:00 08/22/24 08:38 Atorvastatin 40 Mg Tablet PO 80 mg DAILY SATHISH Administration Carvedilol 12.5 mg 08/20/24 21:00 08/22/24 08:37 Carvedilol 12.5 Mg Tablet PO 12.5 mg Q12HR SATHISH Administration Clopidogrel Bisulfate 75 mg 08/19/24 09:00 08/22/24 08:38 Clopidogrel Bisulfate 75 Mg Tablet PO 75 mg QAM SATHISH Administration Dextrose 12.5 gm 08/18/24 08:00 Dextrose 50% 25 Gm/50 Ml Syringe IV PUSH PRN PRN Hypoglycemia Protocol Enoxaparin Sodium 40 mg 08/19/24 09:00 08/22/24 08:38 Enoxaparin 40 Mg/0.4 Ml Syringe SUB-Q 40 mg DAILY SATHISH Administration Glucagon 1 mg 08/18/24 08:00 Glucagon For Inj 1 Mg Vial IM PRN PRN Hypoglycemia Protocol Glucose 15 gm 08/18/24 08:00 Glucose Oral Gel 15 Gm Of Glucse In 37.5 Gm Tube PO PRN PRN Hypoglycemia Protocol Hydrochlorothiazide 12.5 mg 08/19/24 09:00 08/19/24 08:51 Hydrochlorothiazide 12.5 Mg Capsule PO 12.5 mg DAILY SATHISH Administration Dextrose 1,000 mls @ 100 mls/hr 08/18/24 08:00 Dextrose 5% 1,000 Ml IVPB PRN PRN Hypoglycemia Protocol Meropenem 1 gm in 100 mls @ 200 mls/hr 08/20/24 15:55 08/22/24 14:34 IVPB 200 mls/hr Q8HR SATHISH Administration Gentamicin Sulfate 400 mg/ 110 mls @ 100 mls/hr 08/23/24 06:00 Dextrose IVPB 08/23/24 07:05 ONCE ONE Insulin Aspart 10 units 08/20/24 17:00 08/22/24 12:12 Insulin Aspart (*Bkc) 100 Units/Ml SUB-Q 10 units TIDWM SATHISH Administration Insulin Aspart 3 - 6 units 08/20/24 16:40 08/22/24 11:56 Insulin Aspart (*Bkc) 100 Units/Ml SUB-Q Not Given TIDWM [facility] Protocol Insulin Glargine 25 units 08/20/24 09:00 08/22/24 08:40 Insulin Glargine (*Bkc) 100 Units/Ml SUB-Q 25 units DAILY SATHISH Administration Lisinopril 10 mg 08/22/24 09:00 08/22/24 08:43 Lisinopril 10 Mg Tablet PO 10 mg DAILY SATHISH Administration Multi-Ingred Cream/Lotion/Oil/Oint 1 applic 08/22/24 11:40 08/22/24 12:11 Eucerin Cream 120 Gm Jar TOPICAL 1 applic DAILY SATHISH Administration Multivitamins Therapeutic 1 tablet 08/20/24 09:00 08/22/24 08:38 Multivitamins Therapeutic Tab (*Bkc) PO 1 tablet DAILY SATHISH Administration Pantoprazole Sodium 40 mg 08/20/24 09:00 08/22/24 08:38 Pantoprazole 40 Mg Tablet PO 40 mg DAILY SATHISH Administration Polyethylene Glycol 17 gm 08/21/24 10:45 08/22/24 08:38 Polyethylene Glycol 3350 17 Gm Powd.Pack PO 17 gm QAM SATHISH Administration Prednisone 20 mg/ Prednisone 30 mg 08/24/24 09:00 10 mg PO 08/24/24 09:01 ONCE ONE Prednisone 20 mg 08/25/24 09:00 Prednisone 20 Mg Tablet PO 08/25/24 09:01 ONCE ONE Prednisone 10 mg 08/26/24 09:00 Prednisone 10 Mg Tablet PO 08/26/24 09:01 ONCE ONE Prednisone 40 mg 08/23/24 09:00 Prednisone 20 Mg Tablet PO 08/23/24 09:01 ONCE ONE Radiology Results: ITS Impressions Head CT 08/17/24 20:34 IMPRESSION: 1. 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 I called this result to Dr. Bolanos. Head/Neck CTA 08/17/24 20:44 IMPRESSION: 1. 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 2. 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 3. 0% stenosis of the proximal internal carotid arteries relative to normal distal artery lumen diameters (NASCET criteria). Venous Doppler Study 08/17/24 22:11 IMPRESSION: 1. No deep venous thrombosis. Brain MRI 08/18/24 12:16 IMPRESSION: 1. 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 No acute intracranial process. 2. Age-related changes in the brain with mild diffuse volume loss and age-appropriate mild scattered white matter T2 hyperintensity consistent with chronic small vessel ischemic disease. 3. 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 Brain MRA 08/18/24 12:25 IMPRESSION: 1. 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 Neck MRA 08/18/24 15:03 IMPRESSION: 1. 0% stenosis of the right carotid bulb relative to normal distal artery lumen diameter (NASCET criteria). 2. 0% stenosis of the left carotid bulb relative to normal distal artery lumen diameter. 3. Right vertebral artery is dominant with diminutive left vertebral artery the distal intracranial portion of which occludes. 4. Fusiform ascending thoracic aortic aneurysm measuring up to 4.7 cm in maximal diameter. 5. Multinodular goiter. Chest X-Ray 08/19/24 16:55 IMPRESSION: Cardiomegaly Aortic atherosclerosis No active pulmonary disease Osteopenia Degenerative spurring of the thoracic spine Bilateral thyroid calcifications Chest CTA 08/19/24 16:59 IMPRESSION: 4.6 cm diameter ascending aortic aneurysm Thyromegaly with bilateral macrocalcifications, cysts Peripheral interstitial thickening of the lungs which might be consistent with usual interstitial pneumonia type pulmonary interstitial fibrosis Sludge and/or stones in the gallbladder lumen Small sliding hiatal hernia Diffuse idiopathic skeletal hyperostosis of the lower thoracic spine Labs Labs: Laboratory Results - last 24 hr 08/21/24 08/21/24 08/21/24 16:31 20:18 23:00 WBC RBC Hgb Hct MCV MCH MCHC RDW Plt Count MPV Immature Gran % (Auto) Neut % (Auto) Lymph % (Auto) [place] % (Auto) Eos % (Auto) Baso % (Auto) Lymph # (Auto) [place] # (Auto) Eos # (Auto) Baso # (Auto) Abs Immat Gran (auto) Absolute Neuts (auto) Absolute Nucleated RBC Nucleated RBC % Sodium Potassium Chloride Carbon Dioxide Anion Gap BUN Creatinine Estim Creat Clear Calc Estimated GFR Glucose POC Capillary Glucose 244 H 334 H 226 H Calcium Total Bilirubin AST ALT Alkaline Phosphatase Troponin I Total Protein Albumin 08/22/24 08/22/24 08/22/24 05:07 07:46 10:16 WBC 10.8 H RBC 4.50 Hgb 13.5 Hct 40.0 MCV 88.9 MCH 30.0 MCHC 33.8 RDW 12.1 Plt Count 242 MPV 9.6 Immature Gran % (Auto) 0.5 Neut % (Auto) 66.8 Lymph % (Auto) 25.1 [place] % (Auto) 7.1 Eos % (Auto) 0.2 Baso % (Auto) 0.3 Lymph # (Auto) 2.70 [place] # (Auto) 0.8 H Eos # (Auto) 0.0 Baso # (Auto) 0.0 Abs Immat Gran (auto) 0.05 H Absolute Neuts (auto) 7.2 H Absolute Nucleated RBC 0.000 Nucleated RBC % 0.0 Sodium 138 Potassium 3.5 Chloride 109 H Carbon Dioxide 27 Anion Gap 2 L BUN 22 H Creatinine 0.70 Estim Creat Clear Calc 51 Estimated GFR > 60 Glucose 111 H POC Capillary Glucose 95 Calcium 9.8 Total Bilirubin 0.6 AST 34 ALT 45 H Alkaline Phosphatase 85 Troponin I < 0.012 Total Protein 7.0 Albumin 3.5 08/22/ 11:40 WBC RBC Hgb Hct MCV MCH MCHC RDW Plt Count MPV Immature Gran % (Auto) Neut % (Auto) Lymph % (Auto) [place] % (Auto) Eos % (Auto) Baso % (Auto) Lymph # (Auto) [place] # (Auto) Eos # (Auto) Baso # (Auto) Abs Immat Gran (auto) Absolute Neuts (auto) Absolute Nucleated RBC Nucleated RBC % Sodium Potassium Chloride Carbon Dioxide Anion Gap BUN Creatinine Estim Creat Clear Calc Estimated GFR Glucose POC Capillary Glucose 173 H Calcium Total Bilirubin AST ALT Alkaline Phosphatase Troponin I Total Protein Albumin Quality VTE Prophylaxis VTE prophylaxis: pharmacologic ordered
[2024-08-22 17:03] LABS: Glucose Point of Care 285 mg/dl (65-105)
[2024-08-22] MEDS: INSULIN ASPART (*BKC) 100 UNITS/ML SUB-Q (17:40)
[2024-08-22 23:05] LABS: Glucose Point of Care 266 mg/dl (65-105)
[2024-08-23 04:00] VITALS: BP 150/73; PULSE 82; RESP 18; TEMP 36.9; O2SAT 100
[2024-08-23 05:43] LABS: Basophils Percent Auto 0.3 % (0.2-1.2); Eosinophils Percent Auto 0.1 % (0-4.4); Hematocrit 40.5 % (37.0-47.0); Immature Granulocyte Absolute 0.06 K/mm3 (0.00-0.031); Immature Granulocyte Percent A 0.6 % (0-0.5); Lymphocytes Absolute Auto 2.46 K/mm3 (0.9-3.2); Lymphocytes Percent Auto 24.2 % (18.3-44.2); Mean Corpuscular HGB Conc 34.6 g/dl (32-36); Mean Corpuscular Hemoglobin 30.6 pg (26-34); Mean Corpuscular Volume 88.4 fl (80-100); Mean Platelet Volume 9.7 fl (7.4-10.4); Monocytes Absolute Auto 0.7 K/mm3 (0.1-0.6); Monocytes Percent Auto 6.7 % (2.6-8.5); Neutrophils Absolute Auto 6.9 K/mm3 (1.3-6.7); Neutrophils Percent Auto 68.1 % (45.5-73.1); Platelet Count Result 236 k/mm3 (150-375); Red Blood Count 4.58 M/mm3 (4.2-5.4); Red Cell Distribution Width 12.2 % (11.5-14.5); White Blood Count 10.2 K/mm3 (4.5-10.0)
[2024-08-23 05:57] LABS: Alanine Aminotransferase 71 U/L (6-35); Albumin Level 3.6 g/dL (3.5-5.1); Alkaline Phosphatase 88 U/L (38-126); Anion Gap 2 mmol/L (4-12); Aspartate Amino Transferase 45 U/L (14-36); Bilirubin,Total 0.8 mg/dL (0.2-1.3); Blood Urea Nitrogen 22 mg/dL (7-17); Calcium 9.5 mg/dL (8.4-10.2); Carbon Dioxide 27 mmol/L (22-30); Chloride 108 mmol/L (98-107); Estimated CRCL calculation 51 ml/min; Estimated Glomerular Filt Rate > 60; Glucose 144 mg/dL (65-110); Potassium 3.5 mmol/L (3.4-5.0); Sodium 137 mmol/L (137-145)
[2024-08-23] MEDS: GENTAMICIN SULFATE INJ 305 MG in DEXTROSE 5% 100 ML 107.63 MG IVPB (06:19)
[2024-08-23] MEDS: ACETAMINOPHEN 325 MG TABLET 650 MG PO (06:24)
[2024-08-23 08:00] VITALS: BP 152/61; PULSE 72; RESP 12; TEMP 36.8; O2SAT 100
[2024-08-23 08:17] LABS: Glucose Point of Care 156 mg/dl (65-105)
[2024-08-23] MEDS: polyethylene glycoL 3350 17 GM POWD.PACK PO (09:07)
[2024-08-23] MEDS: CLOPIDOGREL BISULFATE 75 MG TABLET PO (09:07)
[2024-08-23] MEDS: PANTOPRAZOLE 40 MG TABLET PO (09:07)
[2024-08-23] MEDS: ATORVASTATIN 40 MG TABLET 80 MG PO (09:07)
[2024-08-23] MEDS: amLODIPine BESYLATE 10 MG TABLET PO (09:07)
[2024-08-23] MEDS: carvediloL 12.5 MG TABLET PO (09:07)
[2024-08-23] MEDS: lisinopriL 10 MG TABLET PO ×2 (09:07→12:08)
[2024-08-23] MEDS: ASPIRIN 81 MG CHEWABLE TABLET PO (09:07)
[2024-08-23] MEDS: INSULIN ASPART (*BKC) 100 UNITS/ML 10 UNITS SUB-Q ×3 (09:07→17:04)
[2024-08-23] MEDS: MULTIVITAMINS THERAPEUTIC TAB (*BKC) 1 TABLET PO (09:07)
[2024-08-23] MEDS: EUCERIN CREAM 120 GM JAR 1 APPLIC TOPICAL (09:08)
[2024-08-23] MEDS: ENOXAPARIN 40 MG/0.4 ML SYRINGE SUB-Q (09:08)
[2024-08-23] MEDS: INSULIN GLARGINE (*BKC) 100 UNITS/ML 25 UNITS SUB-Q (09:11)
[2024-08-23] MEDS: predniSONE 20 MG TABLET 40 MG PO (09:11)
--- NOTE | 2024-08-23 10:46 | P.PNCA_ITS ---
Progress Note: A&P Assessment and Plan (1) Hypertension, uncontrolled: Code(s): I10 - Essential (primary) hypertension Status: Acute Assessment and Plan: Generally not well controlled per daughter. Agree with previous adjustments made by hospitalist. Increase lisinopril from 10-20 mg daily. Administer additional lisinopril 10 mg x 1 today. Continue carvedilol and amlodipine. (2) Dilated aortic root: Code(s): I77.810 - Thoracic aortic ectasia Status: Acute Assessment and Plan: 4.5cm by echo and chest CT. Blood pressure control. Outpatient surveillance and follow up (3) Chest pain: Code(s): R07.9 - Chest pain, unspecified Status: Acute Assessment and Plan: Patient had not had recurrence of chest pain for the last 2 days. Atypical chest pain. Troponin negative, EKG reviewed under his muscles shows sinus rhythm with poor R-wave progression but no ischemia. Echocardiogram showed normal ejection fraction and no wall motion abnormalities. Likely will not pursue any additional cardiac workup in the hospital but certainly could consider outpatient stress test or CCTA. Subjective Date/time seen: Date of service 08/23/24 10:46 Interval history: Date of service 08/23/2024-resting comfortably in chair. No chest pain. Family on bedside. Blood pressure is elevated Review of Systems Review of Systems: All systems reviewed & are unremarkable except as noted in HPI and below Exam Const: General: comfortable, no acute distress, alert and awake Orientation/consciousness: patient oriented x3 HENMT: Head: normal to inspection Other: right sided mouth droop Eyes: General: appearance normal, both eyes and all related structures Pupils: Equal, round and reactive pupils present Neck: Neck: normal visual inspection, supple and no JVD Chest: Other: reproducible chest wall pain to palpation Resp: Effort & Inspection: normal respiratory effort Auscultation: clear to auscultation bilaterally Cardio: Rate: regular rate Rhythm: regular rhythm Heart sounds: S1 normal heart sound present, S2 normal heart sound present and no murmurs GI: Auscultation: normal bowel sounds Skin: General skin exam: normal color Neuro: General: patient oriented x3 Cranial nerves: Yes Equal, round and reactive pupils present Speech: No normal speech Extrem: General: normal to inspection Psych: Appearance: grossly normal Mental Status: mental status grossly normal Objective Data Vital Signs Vital Signs: Vital Signs - 24 hr 08/22/24 11:53 08/22/24 16:00 08/22/24 20:00 Temperature 36.3 C L 36.9 C Pulse Rate 59 L 66 66 Respiratory Rate 12 12 18 Blood Pressure 121/69 143/63 H 141/69 H Pulse Oximetry 100 97 100 Oxygen Delivery 08/22/24 21:30 08/22/24 21:40 08/23/24 04:00 Temperature 36.9 C Pulse Rate 66 82 Respiratory Rate 18 Blood Pressure 150/73 H Pulse Oximetry 100 Oxygen Delivery Room Air 08/23/24 08:00 08/23/24 08:00 Temperature 36.8 C Pulse Rate 72 Respiratory Rate 12 Blood Pressure 152/61 H Pulse Oximetry 100 Oxygen Delivery Room Air Intake/Output Intake/Output: Intake & Output 08/20/24 08/21/24 08/22/24 08/23/24 23:59 23:59 23:59 23:59 Intake Total 1979 3020 4820 348 Output Total 1150 Balance 1979 3028 4334 -802 Meds/Results Medications: Active Medications Generic Name Dose Route Start Last Admin Trade Name Freq PRN Reason Stop Dose Admin Acetaminophen 650 mg 08/18/24 15:00 08/23/24 06:24 Acetaminophen 325 Mg Tablet PO 650 mg Q8H SATHISH Administration Amlodipine Besylate 10 mg 08/19/24 09:00 08/23/24 09:07 Amlodipine Besylate 10 Mg Tablet PO 10 mg DAILY SATHISH Administration Artificial Tears 1 drop 08/22/24 21:22 Artificial Tears Ophth Soln 15 Ml Bottle EACH EYE QID PRN Dry Eye(s) Aspirin 81 mg 08/19/24 08:00 08/23/24 09:07 Aspirin 81 Mg Chewable Tablet PO 81 mg DAILY@0800 SATHISH Administration Atorvastatin Calcium 80 mg 08/18/24 09:00 08/23/24 09:07 Atorvastatin 40 Mg Tablet PO 80 mg DAILY SATHISH Administration Carvedilol 12.5 mg 08/20/24 21:00 08/23/24 09:07 Carvedilol 12.5 Mg Tablet PO 12.5 mg Q12HR SATHISH Administration Clopidogrel Bisulfate 75 mg 08/19/24 09:00 08/23/24 09:07 Clopidogrel Bisulfate 75 Mg Tablet PO 75 mg QAM SATHISH Administration Dextrose 12.5 gm 08/18/24 08:00 Dextrose 50% 25 Gm/50 Ml Syringe IV PUSH PRN PRN Hypoglycemia Protocol Enoxaparin Sodium 40 mg 08/19/24 09:00 08/23/24 09:08 Enoxaparin 40 Mg/0.4 Ml Syringe SUB-Q 40 mg DAILY SATHISH Administration Glucagon 1 mg 08/18/24 08:00 Glucagon For Inj 1 Mg Vial IM PRN PRN Hypoglycemia Protocol Glucose 15 gm 08/18/24 08:00 Glucose Oral Gel 15 Gm Of Glucse In 37.5 Gm Tube PO PRN PRN Hypoglycemia Protocol Hydrochlorothiazide 12.5 mg 08/19/24 09:00 08/19/24 08:51 Hydrochlorothiazide 12.5 Mg Capsule PO 12.5 mg DAILY SATHISH Administration Dextrose 1,000 mls @ 100 mls/hr 08/18/24 08:00 Dextrose 5% 1,000 Ml IVPB PRN PRN Hypoglycemia Protocol Insulin Aspart 10 units 08/20/24 17:00 08/23/24 09:07 Insulin Aspart (*Bkc) 100 Units/Ml SUB-Q 10 units TIDWM SATHISH Administration Insulin Aspart 3 - 6 units 08/20/24 16:40 08/23/24 09:07 Insulin Aspart (*Bkc) 100 Units/Ml SUB-Q Not Given TIDWM SATHISH Protocol Insulin Glargine 25 units 08/20/24 09:00 08/23/24 09:11 Insulin Glargine (*Bkc) 100 Units/Ml SUB-Q 25 units DAILY SATHISH Administration Lisinopril 10 mg 08/22/24 09:00 08/23/24 09:07 Lisinopril 10 Mg Tablet PO 10 mg DAILY SATHISH Administration Multi-Ingred Cream/Lotion/Oil/Oint 1 applic 08/22/24 11:40 08/23/24 09:08 Eucerin Cream 120 Gm Jar TOPICAL 1 applic DAILY SATHISH Administration Multivitamins Therapeutic 1 tablet 08/20/24 09:00 08/23/24 09:07 Multivitamins Therapeutic Tab (*Bkc) PO 1 tablet DAILY SATHISH Administration Pantoprazole Sodium 40 mg 08/20/24 09:00 08/23/24 09:07 Pantoprazole 40 Mg Tablet PO 40 mg DAILY SATHISH Administration Polyethylene Glycol 17 gm 08/21/24 10:45 08/23/24 09:07 Polyethylene Glycol 3350 17 Gm Powd.Pack PO 17 gm QAM SATHISH Administration Prednisone 20 mg/ Prednisone 30 mg 08/24/24 09:00 10 mg PO 08/24/24 09:01 ONCE ONE Prednisone 20 mg 08/25/24 09:00 Prednisone 20 Mg Tablet PO 08/25/24 09:01 ONCE ONE Prednisone 10 mg 08/26/24 09:00 Prednisone 10 Mg Tablet PO 08/26/24 09:01 ONCE ONE Radiology Results: ITS Impressions Head CT 08/17/24 20:34 IMPRESSION: 1. 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 I called this result to Dr. Bolanos. Head/Neck CTA 08/17/24 20:44 IMPRESSION: 1. 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 2. 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 3. 0% stenosis of the proximal internal carotid arteries relative to normal distal artery lumen diameters (NASCET criteria). Venous Doppler Study 08/17/24 22:11 IMPRESSION: 1. No deep venous thrombosis. Brain MRI 08/18/24 12:16 IMPRESSION: 1. 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 No acute intracranial process. 2. Age-related changes in the brain with mild diffuse volume loss and age- appropriate mild scattered white matter T2 hyperintensity consistent with chronic small vessel ischemic disease. 3. 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 Brain MRA 08/18/24 12:25 IMPRESSION: 1. 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 Neck MRA 08/18/24 15:03 IMPRESSION: 1. 0% stenosis of the right carotid bulb relative to normal distal artery lumen diameter (NASCET criteria). 2. 0% stenosis of the left carotid bulb relative to normal distal artery lumen diameter. 3. Right vertebral artery is dominant with diminutive left vertebral artery the distal intracranial portion of which occludes. 4. Fusiform ascending thoracic aortic aneurysm measuring up to 4.7 cm in maximal diameter. 5. Multinodular goiter. Chest X-Ray 08/19/24 16:55 IMPRESSION: Cardiomegaly Aortic atherosclerosis No active pulmonary disease Osteopenia Degenerative spurring of the thoracic spine Bilateral thyroid calcifications Chest CTA 08/19/24 16:59 IMPRESSION: 4.6 cm diameter ascending aortic aneurysm Thyromegaly with bilateral macrocalcifications, cysts Peripheral interstitial thickening of the lungs which might be consistent with usual interstitial pneumonia type pulmonary interstitial fibrosis Sludge and/or stones in the gallbladder lumen Small sliding hiatal hernia Diffuse idiopathic skeletal hyperostosis of the lower thoracic spine Labs Labs: Laboratory Results - last 24 hr 08/22/24 08/22/24 08/22/24 11:40 16:57 21:04 WBC RBC Hgb Hct MCV MCH MCHC RDW Plt Count MPV Immature Gran % (Auto) Neut % (Auto) Lymph % (Auto) [place] % (Auto) Eos % (Auto) Baso % (Auto) Lymph # (Auto) [place] # (Auto) Eos # (Auto) Baso # (Auto) Abs Immat Gran (auto) Absolute Neuts (auto) Absolute Nucleated RBC Nucleated RBC % Sodium Potassium Chloride Carbon Dioxide Anion Gap BUN Creatinine Estim Creat Clear Calc Estimated GFR Glucose POC Capillary Glucose 173 H 285 H 266 H Calcium Total Bilirubin AST ALT Alkaline Phosphatase Total Protein Albumin 08/23/24 08/23/24 05:29 08:07 WBC 10.2 H RBC 4.58 Hgb 14.0 Hct 40.5 MCV 88.4 MCH 30.6 MCHC 34.6 RDW 12.2 Plt Count 236 MPV 9.7 Immature Gran % (Auto) 0.6 H Neut % (Auto) 68.1 Lymph % (Auto) 24.2 [place] % (Auto) 6.7 Eos % (Auto) 0.1 Baso % (Auto) 0.3 Lymph # (Auto) 2.46 [place] # (Auto) 0.7 H Eos # (Auto) 0.0 Baso # (Auto) 0.0 Abs Immat Gran (auto) 0.06 H Absolute Neuts (auto) 6.9 H Absolute Nucleated RBC 0.000 Nucleated RBC % 0.0 Sodium 137 Potassium 3.5 Chloride 108 H Carbon Dioxide 27 Anion Gap 2 L BUN 22 H Creatinine 0.70 Estim Creat Clear Calc 51 Estimated GFR > 60 Glucose 144 H POC Capillary Glucose 156 H Calcium 9.5 Total Bilirubin 0.8 AST 45 H ALT 71 H Alkaline Phosphatase 88 Total Protein 7.0 Albumin 3.6
[2024-08-23 11:59] LABS: Glucose Point of Care 265 mg/dl (65-105)
[2024-08-23 12:00] VITALS: BP 106/59; PULSE 61; RESP 14; TEMP 36.6; O2SAT 100
[2024-08-23] MEDS: INSULIN ASPART (*BKC) 100 UNITS/ML SUB-Q (12:08)
--- NOTE | 2024-08-23 13:26 | PM.DS ---
DS: Admitting Diagnosis Discharge Date 08/23/24 Admitting Diagnosis Right Facial Weakness DS: Discharge Diagnosis Discharge Diagnosis (1) DMII (diabetes mellitus, type 2): Code(s): E11.9 - Type 2 diabetes mellitus without complications Status: Acute Assessment and Plan: Uncontrolled Diabetes, hyperglycemia HgbA1c 11.2% Blood sugars more elevated in the setting of steroids Lantus dose increased inpatient with steroids Treated with scheduled Lispro 10 TID and moderate dose SSI Seen by Package Line Operator and Patient Access Representative. Discussed with family and agreeable to starting metformin on discharge. (2) Dental infection: Code(s): K04.7 - Periapical abscess without sinus Status: Acute Assessment and Plan: Right facial/dental pain. s/p IV & PO clinda. --Patient with MDR UTI. --Covered by meropenem for UTI. --Follow up with dentist on discharge. (3) HTN (hypertension): Code(s): I10 - Essential (primary) hypertension Status: Acute Assessment and Plan: - Better controlled. - Seen by pharmacology professor. - Continue Amlodipine and Lisinopril. (4) Aortic aneurysm: Code(s): I71.9 - Aortic aneurysm of unspecified site, without rupture Status: Acute Assessment and Plan: TTE showed LVEF 65-70%. Chest x-ray & CT chest showed an ascending aortic aneurysm. Will need follow up imaging every 6months-1 year, likely TTE Control of blood pressure as noted 08/18 TTE LVEF 65-70% proximal ascending aorta size is mildly dilated at 4.5cm 08/19 CTA 4.6 cm diameter ascending aortic aneurysm Thyromegaly with bilateral macrocalcifications, cysts Peripheral interstitial thickening of the lungs which might be consistent with usual interstitial pneumonia type pulmonary interstitial fibrosis Sludge and/or stones in the gallbladder lumen Small sliding hiatal hernia Diffuse idiopathic skeletal hyperostosis of the lower thoracic spine Seen by Cardiology and close monitoring outpatient recommended. (5) E-coli UTI: Code(s): N39.0 - Urinary tract infection, site not specified; B96.20 - Unspecified Escherichia coli [E. coli] as the cause of diseases classified elsewhere Status: Acute Assessment and Plan: No flank pain but now reporting dysuria. Urine culture growing MDR E.Coli. Report of anaphylaxis in chart from N but discussed with daughter at bedside and may have been a rash and not swelling or shortness of breath. But was in [place] and she has no way to verify and doesn't think her mom will know. --Treated with Meropenem 1 gm IVPB q8. Given a dose of Gentamycin IV prior to discharge. 1. Escherichia Coli M.I.C. RX --------- --- Amoxicillin/Clavulanate <=2 S Ampicillin/Sulbactam 4 S Cefazolin >=64 R For uncomplicated UTI caused by E. coli, K. pneumoniae or P. mirabilis: Cefazolin is susceptible if DENIA <32 mcg/mL and predicts susceptible to the oral agents cefaclor, cefdinir, cefpodoxime, cefprozil, cefuroxime, cephalexin and loracarbef. 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 Prior stroke likely an incidental finding per neurology - No weakness to extremities. Weakness to right side of face includes forehead. - Right sided facial weakness improved with steroids. - Seen by Neurology, appreciate recommendations Started steroids with improving weakness. - Facial pain resolved and no evidence of Garcia Aponte syndrome noted. - Seen by Speech, PT, and OT. - Home discharge with family. - No aspiration signs noted. --Continued on aspirin and started on Plavix inpatient. -- Atorvastatin dose increased. Plan Hospital Course as of 08/20: Roseann Capellan is an 84 year old female hx diabetes, uncontrolled, HTN, CVA, who came for evaluation of left facial weakness, admitted for new facial weakness, diagnosed with Cardoza's palsy and started on steroids. 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 Prior stroke likely an incidental finding per neurology No weakness to extremities. Weakness to right side of face includes forehead. Right sided facial weakness. Neurology evaluated and recommended steroids Speech, PT, and OT were consulted. -- Continued aspirin and started plavix, increased atorvastatin HTN, uncontrolled Reports frequently elevated blood pressures in the 190's at home. Headache intermittently, no chest pain. Home meds: amlodipine 10mg daily, losartan 100/hctz 12.5mg daily. Adjusted meds for better blood pressure control. Continued amlodipine. Started coreg, seemed to have better control, and reduced losartan/hctz Uncontrolled Diabetes, hyperglycemia HgbA1c 11 Blood sugars elevated. Home meds: Lantus 20 units daily. Changed to basal bolus during admission Increased Lantus and mealtime insulin with prednisone. Discussed diet modifications and consulted hospice educator and packager or packer and weigher Discussed starting metformin for discharge. Dental pain Right facial/dental pain. s/p IV clinda, continued but then continued meropenem for UTI --Follow up with dentist UTI Urine culture growing ecoli resistant to multiple antibiotics. Stopped nitrofurantoin. Started meropenem since having dysuria. No flank pain Gallbladder stones/sludge Incidental finding on CT. No evidence of acute cholecystitis. LFT's --Outpatient follow up with PCP. Aortic Dilation TTE showed LVEF 65-70%. Chest x-ray & CT chest showed an ascending aortic aneurysm. Will need follow up imaging every 6months-1 year, likely TTE Control of blood pressure as noted 08/18 TTE LVEF 65-70% proximal ascending aorta size is mildly dilated at 4.5cm 08/19 CTA 4.6 cm diameter ascending aortic aneurysm Thyromegaly with bilateral macrocalcifications, cysts Peripheral interstitial thickening of the lungs which might be consistent with usual interstitial pneumonia type pulmonary interstitial fibrosis Sludge and/or stones in the gallbladder lumen Small sliding hiatal hernia Diffuse idiopathic skeletal hyperostosis of the lower thoracic spine DS: Summary Hospital Course Hospital Course: Hospital Course: Roseann Capellan is an 84 year old female hx diabetes, uncontrolled, HTN, CVA, who came for evaluation of left facial weakness, admitted for new facial weakness, diagnosed with Cardoza's palsy and started on steroids. Titrated meds for diabetes and hypertension during hodpital stay. 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 Prior stroke likely an incidental finding per neurology No weakness to extremities. Weakness to right side of face includes forehead. Right sided facial weakness. Neurology evaluated and recommended steroids. Continue to taper steroids. Seen by Speech, PT, and OT. -- Continued aspirin and started on plavix per neurologist and atorvastatin dose increased. HTN, uncontrolled Reports frequently elevated blood pressures in the 190's at home. Headache intermittently, no chest pain. Home meds: amlodipine 10mg daily, losartan 100/hctz 12.5mg daily. Lisinopril started and dose adjusted inpatient. Uncontrolled Diabetes, hyperglycemia HgbA1c 11 Blood sugars elevated. Home meds: Lantus 20 units daily. Changed to basal bolus during admission Increased Lantus and mealtime insulin with prednisone. Seen by hospice educator and packager or packer and weigher. Will be discharged on Metformin. Dental pain Right facial/dental pain. s/p IV clinda and meropenem. --Follow up with dentist UTI Urine culture growing MDR ecoli. Treated with Meropenem due to reports of dysuria. Gallbladder stones/sludge Incidental finding on CT. No evidence of acute cholecystitis. --Denies any GI symptoms. --Outpatient follow up with PCP if symptoms occur. Aortic Dilation TTE showed LVEF 65-70%. Chest x-ray & CT chest showed an ascending aortic aneurysm. Will need follow up imaging every 6months-1 year, likely TTE Control of blood pressure as noted 08/18 TTE LVEF 65-70% proximal ascending aorta size is mildly dilated at 4.5cm 08/19 CTA 4.6 cm diameter ascending aortic aneurysm Thyromegaly with bilateral macrocalcifications, cysts Peripheral interstitial thickening of the lungs which might be consistent with usual interstitial pneumonia type pulmonary interstitial fibrosis Sludge and/or stones in the gallbladder lumen Small sliding hiatal hernia Diffuse idiopathic skeletal hyperostosis of the lower thoracic spine. - Seen by pharmacology professor and close-monitoring with better BP control recommended. Status at Discharge Functional status at discharge: independent ambulation Overall status at discharge: patient is progressing back to baseline Time Spent with Patient Time attestation: Total time spent providing and/or coordinating discharge services: Time spent: Greater than 30 minutes Exam Narrative: General - Awake and alert. No acute distress Eyes - PERRLA, EOM intact ENT - No thrush, No erythema Neck - No noticeable or palpable swelling Lymph Nodes - No lymphadenopathy Cardiovascular - RRR no m/r/g, no JVD Lungs: Clear to auscultation, No wheezing, use of accessory muscles, no crackles or wheezes. Skin - Skin warm and dry, no wounds or rashes Abdomen - Normal bowel sounds, abdomen soft and nontender Extremities - No edema, cyanosis or clubbing Musculoskeletal - 5/5 strength, normal range of motion, no swollen or erythematous joints. Neurological ? Alert and oriented x 3, Left-sided facial droop. Left eye unable to open fully, Upper and lower extremities strength equal. Psych: Normal mood and affect DS: Data Data Completed and Pending Labs on day of discharge: Labs from last 24 hours 08/23/24 08/23/24 08/23/24 11:46 08:07 05:29 WBC 10.2 H RBC 4.58 Hgb 14.0 Hct 40.5 MCV 88.4 MCH 30.6 MCHC 34.6 RDW 12.2 Plt Count 236 MPV 9.7 Immature Gran % (Auto) 0.6 H Neut % (Auto) 68.1 Lymph % (Auto) 24.2 [place] % (Auto) 6.7 Eos % (Auto) 0.1 Baso % (Auto) 0.3 Lymph # (Auto) 2.46 [place] # (Auto) 0.7 H Eos # (Auto) 0.0 Baso # (Auto) 0.0 Abs Immat Gran (auto) 0.06 H Absolute Neuts (auto) 6.9 H Absolute Nucleated RBC 0.000 Nucleated RBC % 0.0 Sodium 137 Potassium 3.5 Chloride 108 H Carbon Dioxide 27 Anion Gap 2 L BUN 22 H Creatinine 0.70 Estim Creat Clear Calc 51 Estimated GFR > 60 Glucose 144 H POC Capillary Glucose 265 H 156 H Calcium 9.5 Total Bilirubin 0.8 AST 45 H ALT 71 H Alkaline Phosphatase 88 Total Protein 7.0 Albumin 3.6 08/22/24 08/22/24 21:04 16:57 WBC RBC Hgb Hct MCV MCH MCHC RDW Plt Count MPV Immature Gran % (Auto) Neut % (Auto) Lymph % (Auto) [place] % (Auto) Eos % (Auto) Baso % (Auto) Lymph # (Auto) [place] # (Auto) Eos # (Auto) Baso # (Auto) Abs Immat Gran (auto) Absolute Neuts (auto) Absolute Nucleated RBC Nucleated RBC % Sodium Potassium Chloride Carbon Dioxide Anion Gap BUN Creatinine Estim Creat Clear Calc Estimated GFR Glucose POC Capillary Glucose 266 H 285 H Calcium Total Bilirubin AST ALT Alkaline Phosphatase Total Protein Albumin Discharge Plan Discharge Attending physician on discharge: Jayjay Wolfe Consulting providers: Wilberto Gonzalez; Alivia Dyer Discharging Clinician: Tod Betancur Anticipated Discharge Date/Time: 08/23/24 14:18 Patient Disposition: Home, Self-Care Activity: may shower and as tolerated Diet: heart healthy and diabetic Patient Instructions: Antibiotic Form Patient Language: [place] Stand Alone Forms: General Discharge Information Follow-up/Referrals: Brendan Chiang MD [Physician] - Call for Appointment PHYSICIAN NOT ON STAFF,NONSTAFF [Primary Care Provider] - (Follow up in 1-2 weeks ) Discharge Medications: New insulin glargine [Lantus Solostar U-100 Insulin] 100 unit/mL (3 mL) insulin pen 35 unit subcut QAM Qty: 15 11RF Rx Instructions: 30 units daily for 4 more days, 08/24, then decrease to 20 units daily on 08/25. Hold if blood sugar is less than 80 and reduce dose by 10 units. insulin aspart U-100 [Novolog FlexPen U-100 Insulin] 100 unit/mL (3 mL) insulin pen 10 unit subcut TID Qty: 15 3RF Rx Instructions: Check blood sugar and give 10 units if blood sugar is 100-200, 13 units if 201-300. 16 units if 301 or above metformin 500 mg tablet extended release 24 hr 1,000 mg PO DAILY Qty: 100 0RF Rx Instructions: Take 1 tablet (500mg) daily for a week, and then increase to 2 tabs (1000mg) daily prednisone 20 mg Tablet 20 mg PO DAILY@0800 4 Days Qty: 4 0RF carvedilol 6.25 mg tablet 6.25 mg PO BID Qty: 60 3RF Rx Instructions: must administer with a meal/food lisinopril 20 mg Tablet 20 mg PO QAM Qty: 30 1RF hydrochlorothiazide 12.5 mg Capsule 12.5 mg PO DAILY Qty: 30 1RF clopidogrel 75 mg Tablet 75 mg PO QAM Qty: 90 0RF aspirin [Children's Aspirin] 81 mg Tablet,Chewable 81 mg PO DAILY@0800 Qty: 90 0RF acetaminophen 325 mg Tablet 650 mg PO Q8H PRN (Reason: Pain, Mild) Qty: 90 0RF atorvastatin 80 mg tablet 80 mg PO HS Qty: 90 0RF Continued cholecalciferol (vitamin D3) 1,250 mcg (50,000 unit) capsule 1,250 mcg PO WEEKLY Patient Comments: On pantoprazole 40 mg tablet,delayed release (DR/EC) 40 mg PO DAILY multivitamin with folic acid [Tab-A-Rhona] 400 mcg tablet 1 tablet PO DAILY amlodipine 10 mg tablet 10 mg PO DAILY 365 Days Qty: 90 0RF Discontinued atorvastatin 40 mg tablet 40 mg PO HS losartan-hydrochlorothiazide 100-12.5 mg tablet 1 tablet PO DAILY insulin glargine [Lantus Solostar U-100 Insulin] 100 unit/mL (3 mL) insulin pen 20 unit SUBCUT DAILY Date of admission: 08/17/24 22:33 Primary Care Provider: PHYSICIAN NOT ON STAFF,NONSTAFF Admitting Provider: Lori Wilson Attending physician on admission: Jasmin Saucedo Condition: Improved Quality If No VTE Prophylaxis Answer both mechanical and pharmacologic: Reason no mechanical VTE proph: low risk/not indicated Reason no pharmacologic proph: low risk/not indicated Hospitalist MIPS Heart Failure (Exclusion) Patient has history of Heart Transplant or Left Ventricular Assistive Device?: No IF YES, STOP HERE Heart Failure (Qualifier) Patient has current or prior documentation of LVEF less than or equal to 40%, or mod/servere depressed LVSF?: No IF NO, STOP HERE
[2024-08-23 16:48] LABS: Glucose Point of Care 154 mg/dl (65-105)
== END 2024-08-23 17:45 | disposition home or self-care (01) ==
LOC: ANHED 21:07 → ANH2MED 08-18 07:20
PROVIDERS: Nurse Practitioner; Nurse Practitioner Family; Physician Assistant; Admitting Provider Internal Medicine; Emergency Provider Emergency Medicine; Visit Provider Nurse Practitioner Acute Care
DX: G51.0 Bell's palsy (principal); N39.0 Urinary tract infection, site not specified; B96.20 Unspecified Escherichia coli [E. coli] as the cause of diseases classified elsewhere; Z16.20 Resistance to unspecified antibiotic; E11.65 Type 2 diabetes mellitus with hyperglycemia; K04.7 Periapical abscess without sinus; I10 Essential (primary) hypertension; I71.21 Aneurysm of the ascending aorta, without rupture; I65.02 Occlusion and stenosis of left vertebral artery; R07.89 Other chest pain; E78.5 Hyperlipidemia, unspecified; K80.20 Calculus of gallbladder without cholecystitis without obstruction; Z86.73 Personal history of transient ischemic attack (TIA), and cerebral infarction without residual deficits; Z86.718 Personal history of other venous thrombosis and embolism; Z79.4 Long term (current) use of insulin; Z79.899 Other long term (current) drug therapy; Z88.0 Allergy status to penicillin
CPT/HCPCS: 36415; 70450; 70496; 70498; 70544; 70549; 70553; 71046; 71275; 80053; 80061; 81001; 82948; 83036; 83735; 84484; 85025; 85610; 85730; 87086; 87186; 92526; 92610; 93005; 93306; 93970; 96360; 96361; 96365; 96372; 96374; 96375; 97161; 97165; 97530; 99285; A9270; G0378; G0379; J1580; J1650; J1815; J1885; J2185; J7030; J7512; Q9967